=== PATIENT | female | born 1990 | race Caucasian/White ===

== ENCOUNTER 2022-08-23 17:44 | Outpatient (CLI) | payer OTHER, SELFPAY ==
[2022-08-23 18:07] LABS: Hematocrit 38.1 % (37.0-47.0)
== END 2022-08-23 17:45 | disposition home or self-care (01) ==
PROVIDERS: PCP Family Medicine; Visit Provider Anesthesiology
DX: L57.4 Cutis laxa senilis (principal); Z01.818 Encounter for other preprocedural examination
CPT/HCPCS: 36415; 85014; 85018

== ENCOUNTER 2022-08-24 14:19 | Outpatient (CLI) | payer OTHER, SELFPAY ==
--- NOTE | 2022-08-24 14:36 | ECG_ITS ---
Measurements Intervals [place] Rate: 92 P: 74 NE: 142 QRS: 65 QRSD: 92 T: 51 QT: 342 QTc: 423 Interpretive Statements SINUS RHYTHM BORDERLINE ST-T WAVE ABNORMALITY- ANT/INF LEADS BORDERLINE ECG NO PREVIOUS ECG AVAILABLE FOR COMPARISON Electronically Signed On 08-24-2022 15:08:08 CDT by Wicho Barnett D.O.
== END 2022-08-24 14:20 | disposition home or self-care (01) ==
PROVIDERS: PCP Family Medicine; Visit Provider Anesthesiology
DX: L57.4 Cutis laxa senilis (principal); R94.31 Abnormal electrocardiogram [ECG] [EKG]
CPT/HCPCS: 93005

== ENCOUNTER 2022-08-25 02:32 | Day surgery (SDC) | payer OTHER, SELFPAY ==
[2022-08-19 17:14] VITALS: BMI 22.1
--- NOTE | 2022-08-19 17:50 | PC.NURSE ---
Report to the Outpatient Waiting Room, entrance under the green pavilion located off [facility], at 0600 on 08-25-22. Planned Procedure Time: 0730. Time changes happen often and if your time is changed the preop area will call you the afternoon before. - You and your visitor will be asked to self-screen and do not enter if you have any COVID symptoms. - We encourage only one visitor and NO visitors under age 16 are allowed at this time. Your visitor will receive communication by the phone number that is given day of service. - The patient visitor is requested to social distance or may leave the building when not with patient due to restrictions. Patients may have clear liquids (water, carbonated beverages, clear teas, apple juice) until 3 hours prior to surgery with a maximum of 20 ounces. 0430 - No food from midnight until time of surgery - Infants may have breast milk until 4 hours before surgery, formula 6 hours prior to surgery. - Children will be allowed to drink immediately following surgery. If applicable, please bring a bottle or sippy cup to assist with drinking. Juice, water, soda, and popsicles are readily available. For infants on formula, please bring formula the day of surgery. Pacifiers are allowed. Take the following medications with a SIP of water the morning of surgery: Valtrex, control, sertraline, xanax if needed Medications to discontinue per physician: N/A Please no make-up, nail south korean, hairspray, perfume, deodorant, or body powder the day of surgery. No jewelry (including any body piercings) or valuables the day of surgery, leave them at home. Please take a shower or bath the night before, or the morning of, surgery with an antibacterial soap. Wear comfortable, loose fitting clothing. (Zip up jacket, button-down shirt is best) Children are encouraged to wear pajamas. - Jewelry must be removed prior to entering the operating room. Rings and piercings that are not removed may be cut off. - The hospital will not accept responsibility for valuables. - Please leave all valuables, including medications, at home the day of surgery. If you are going home after surgery, a licensed dray truck driver must drive you home. - NO public transportation without another adult. - We recommend that an adult stay with you for 24 hours following discharge. - We also recommend that you do not drive, make important decision, drink alcoholic beverages, or take any drugs that were not prescribed by your health care provider for at least 24 hours after your discharge time. For Pediatric surgeries, we recommend two adults accompany the child home. Follow any additional instructions given to you from your surgeon. If you or anyone in your household have experienced Covid symptoms in the past week, please notify your surgeon or the nurse liaison at the phone number below for possible testing. Telephone instructions given to Tuyet Brownlee and asked if any additional questions and then verbalized understanding. Patient advised to call surgeon office or pre surgery nurse liaison [phone] if any additional questions.
[2022-08-25] VITALS (11 sets, daily range): BP systolic 127–143; BP diastolic 71–88; PULSE 86–105; RESP 14–18; TEMP 36.1–36.6; O2SAT 96–100
--- NOTE | 2022-08-25 06:10 | ECG_ITS ---
Measurements Intervals [place] Rate: 86 P: 72 [place]: 134 QRS: 62 QRSD: 88 T: 56 QT: 351 QTc: 422 Interpretive Statements SINUS RHYTHM NORMAL ECG COMPARED TO ECG 08/24/2022 15:06:21 NO SIGNIFICANT CHANGES Electronically Signed On 08-25-2022 7:54:56 CDT by Wicho Barnett D.O.
--- NOTE | 2022-08-25 06:56 | WPDHPUPDATE1 ---
History and Physical Update Update Date/Time: 08/25/22 06:56 History and Physical has been reviewed, including an updated exam of the patient. There are NO changes in the patient's condition. Risks, benefits, and alternatives have been discussed and questions answered. Patient agrees to proceed with procedure.
[2022-08-25 06:58] LABS: Urine Cotinine NEGATIVE
--- NOTE | 2022-08-25 07:06 | W.PM.PROC2 ---
Procedure Note - Detailed Date of Procedure 08/25/22 Pre-op Diagnosis skin laxity, micromastia Post-op Diagnosis Same Procedure Performed 1. Cervicoplasty 2. Bilateral augmentation Mastopexy 3. Suction lipectomy with fat grafting to bilateral hip dips Surgeon Hu Guillermo MD Anesthesia General Findings Inverted T Superior Pedicle Mastopexy Bilateral Deshawn Tamayo SoftTouch 320 cc Right - REF# [id number] SN [id number] Left - REF# [id number] SN [id number] Lipoaspirate 1500cc Fat grafting bilateral hip dips (300cc / side) 600cc Description of Procedure She is here today for the above. Previously and again today the risks, benefits, alternatives were discussed in extensive detail. I wanted her to be very realistic about the risks involved as well as expectations. We discussed aftercare and what to monitor for. Made sure answered all of her questions to her satisfaction today and consent was obtained. Marked in the preoperative holding area with their verification. The patient was taken to the operating room placed supine on the operating table. Anesthesia was provided by anesthesiology. A surgical time-out was taken. Cervicoplasty She was prepped and draped in a standard sterile fashion. I infiltrated with a tumescent solution the neck and gave adequate time for hemostasis. Fifteen blade used to make an incision submental. Dissection was continued down to the platysma was identified and elevated just above the platysma. I then went between the platysma and deep fat had only obviously excess tissue here making for smooth contour. Submandibular glands were not prominent and addressed. I released the platysma transversely at the level of the hyoid. I then sutured the platysma midline using 2-0 Vicryl. Ten Sujit drain was placed which was brought out laterally. No sutured in place with 4-0 Vicryl. I closed the mental using 3-0 Monocryl followed by running subcuticular 4-0 Monocryl and tissue glue. Breast We cleansed the skin and 1% lidocaine and 0.25% Marcaine with epinephrine was used anesthetize as a field block. She was prepped and draped in a standard sterile fashion. Tegaderm nipple Nixon were placed. A 15 blade used to make an incision just superior to the inframammary fold leaving a cusp of de-epithelized tissue at the t junction. Dissection was continued until the chest wall as identified. I incised the pectoralis major along its inferior border and completely released the inferior border leaving the medial border intact. I created a subpectoral pocket in the appropriate dimensions based on our preoperative planning for the implant. I then copiously irrigated with saline solution and verified a strict hemostasis. Next the use a triple antibiotic and Betadine containing solution to irrigate the pocket. I washed my gloves with the triple antibiotic and Betadine solution. We washed the implant immediately upon opening it with this solution and only opened it when we needed it. I used implant funnel and no-touch technique. The implant was introduced into the pocket using the funnel. Having verified positioning of the implant this was closed using 2-0 Vicryl. I tailor tacked the breast into position. Placed her in a sitting position. Verified the nipple-areolar location based on preoperative planning as well as intraoperative observations and measurements in full agreement. She was placed supine. I de-epithelialized the pedicle. I then removed the inferior central portion of the breast need making sure the implant was well protected. I elevated medial and lateral tissue flaps as well for planned closure. I closed along the IMF with 2-0 Stratafix. Along the vertical with 2-0 PDS. I closed around the Jimy with 3-0 strata fix. 3-0 Monocryl along the vertical. 3-0 Stratafix along the IMF. I finally closed everything with running subcuticular 4-0 Monocryl and tissue glue. Fat grafting Eleven blade was util
[2022-08-25] MEDS: LACTATED RINGERS 1,000 ML 30 ML IV CONT ×2 (07:14→13:12)
--- NOTE | 2022-08-25 07:18 | WPDANESEPPF ---
Anes - Initial Pre Proc Eval Procedure: Operation Date: 08/25/22 07:30 Proposed Procedures p Bilateral Breast Augmentation, - Hu Guillermo MD s Bilateral Breast Mastopexy, - Hu Guillermo MD s Fat Grafting to Bilateral Hips, - Hu Guillermo MD s Submental Scar Neck Lift with Liposuction - Hu Guillermo MD Date/Time: 08/25/22 07:18 Surgeon: Hu Guillermo MD Pre Op Diagnosis: skin laxity, micromastia Patient Data Age: 31 Gender: F Height: 1.78 m Weight: 69.85 kg Allergies Allergy/AdvReac Type Severity Reaction Status Date / Time No Known Allergies Allergy Verified 08/19/22 17:11 Home Medications Medication Instructions Recorded Confirmed Type alprazolam 0.25 mg tablet (Xanax) 0.25 mg PO PRN 08/24/20 08/19/22 History norgestimate 0.18 mg/0.215 mg/0.25 1 tablet PO DAILY 08/24/20 08/19/22 History mg-ethinyl estradiol 25 mcg tablet (Gai-Pw-Xamemkvl) sertraline 50 mg tablet (Zoloft) 50 mg PO DAILY 08/24/20 08/19/22 History valacyclovir 500 mg tablet 500 mg PO DAILY 08/24/20 08/19/22 History (Valtrex) Laboratory Tests 08/25/22 06:24 Cotinine Negative Patient hx anesthesia problems: post op nausea/vomiting Family hx anesthesia problems: none Results Review: All pre-operative results and documents have been reviewed as part of the pre-operative evaluation. [facility] Past Medical History Medical History Anxiety Hx of migraines Surgical History Surgical History History of cosmetic plastic surgery [facility] December 2017 Social History Social History Smoking status: Never smoker Second hand tobacco smoke exposure: No Alcohol intake: current Alcohol use details: rarely Substance use: current Substance use type: marijuana Other substance usage details: rarely Living arrangements: alone Spiritual care concerns: No Anes - Eval Final PreProcedure Day of Procedure 11/03/22 07:18 Patient weight: normal Heart: regular rate and rhythm Lungs: clear to auscultation Airway: Mallampati scale class II Neurological: alert and oriented Last oral intake: >/= 8 hours ASA classification: II Emergent: no Anesthetic plan: proceed Anesthesia type and monitoring: general and standard monitoring Results Review: All pre-operative results and documents have been reviewed as part of the pre-operative evaluation. Informed Consent: The patient's anesthetic plan and its attendant risks and benefits were discussed with the patient/family/POA. Questions were solicited and answers provided to the satisfaction of the patient/family/POA.
[2022-08-25] MEDS: SCOPOLAMINE 1.5 MG PATCH TRANSDERM (07:40)
[2022-08-25] MEDS: ceFAZolin 2 GM/D5W 50 ML 2 GM/50 ML BAG IVPB (07:40)
[2022-08-25] MEDS: TRANEXAMIC ACID 1,000MG/ISO100 1,000 MG/100 ML BAG 200 MG IVPB (07:49)
[2022-08-25] MEDS: NACL 0.9% IRRIG POUR BOTTLE 900 ML, GENTAMICIN SULFATE INJ 160 MG, ceFAZolin 2 GM, POVI... IRRIGATION (08:52)
[2022-08-25] MEDS: BUPIVACAINE/EPINEPHRINE 0.25% 50 ML VIAL INFILTRATE (08:53)
[2022-08-25] MEDS: LIDOCAINE HCL 1% PF 30 ML VIAL INFILTRATE (08:54)
[2022-08-25] MEDS: ceFAZolin SODIUM 1 GM VIAL IV PUSH (12:05)
[2022-08-25] MEDS: LACTATED RINGERS IRRIG 1,000 ML, LIDOCAINE HCL 1% LOCAL INJ 50 ML, EPINEPHrine HCL INJ ... INFILTRATE (12:07)
[2022-08-25] MEDS: HYDROmorphone HCL INJ (*CRX) 1 MG/ML SYR 0.5 MG IV PUSH (13:53)
[2022-08-25] MEDS: ONDANSETRON INJ 4 MG/2 ML VIAL IV PUSH (14:51)
--- NOTE | 2022-08-25 15:46 | SUR.PHASEII ---
PATIENT AWAKE, ALERT, NAD. RELUCTANT TO GO HOME YET UNTIL FEELS MORE CLEAR-HEADED. WILL CONTINUE TO MONITOR.
[2022-08-25] MEDS: oxyCODONE HCL (*CRX) 5 MG TAB IR PO (16:13)
--- NOTE | 2022-08-25 16:18 | SUR.PHASEII ---
PATIENT INSTRUCTED AND GIVEN DEMONSTRATION RE: JESSEE DRAIN. GIVEN I & O FORM AND MEASURING CUPS.
[2022-08-25] MEDS: diphenhydrAMINE HCl INJ 50 MG/ML VIAL 12.5 MG IV PUSH (16:25)
--- NOTE | 2022-08-25 17:28 | SUR.PHASEII ---
PATIENT HAS BEEN DRESSED SINCE 1600. RIDE ARRIVED BUT PATIENT HAS HAD INTERMITTENT NAUSEA/VOMITING SO RIDE LEFT TO BASKET [facility]ER HER CHILD AND WILL RETURN. HAS MINIMAL NAUSEA NOW; ABLE TO WALK WITHOUT ASSISTANCE IN THE KIM. AWAITING RIDE.
== END 2022-08-25 17:51 | disposition home or self-care (01) ==
PROVIDERS: PCP Family Medicine; Visit Provider Surgery Plastic and Reconstructive Surgery
PROC: (CPT 15819; principal; 2022-08-25 07:30)
PROC: (CPT 19316; 2022-08-25 07:30)
PROC: (CPT 15769; 2022-08-25 07:30)
PROC: (CPT 15819; 2022-08-25 07:30)
DX: Z41.1 Encounter for cosmetic surgery (principal); L57.4 Cutis laxa senilis; N64.82 Hypoplasia of breast
CPT/HCPCS: 15819; 19316; 19325; 15771; 15772 ×11; 80307; 93005; A9270; J0171; J0330; J0690; J1100; J1170; J1200; J1580; J2250; J2370; J2405; J2704; J3010; J7030; J7120

== ENCOUNTER 2023-03-09 16:20 | Outpatient (CLI) | payer OTHER, SELFPAY ==
[2023-03-09 16:40] LABS: Hematocrit 38.4 % (37.0-47.0); Hemoglobin 13.2 g/dL (12.0-15.0); Mean Corpuscular HGB Conc 34.4 g/dl (32-36); Mean Corpuscular Hemoglobin 33.8 pg (26-34); Mean Corpuscular Volume 98.5 fl (80-100); Mean Platelet Volume 9.5 fl (7.4-10.4); Platelet Count Result 240 k/mm3 (150-375); Red Cell Distribution Width 11.9 % (11.5-14.5); White Blood Count 7.1 K/mm3 (4.5-10.0)
[2023-03-09 17:49] LABS: Alanine Aminotransferase 15 U/L (6-35); Albumin Level 4.1 g/dL (3.5-5.1); Alkaline Phosphatase 59 U/L (38-126); Anion Gap 6 mmol/L (8-16); Aspartate Amino Transferase 23 U/L (14-36); Bilirubin,Total 0.3 mg/dL (0.2-1.3); Blood Urea Nitrogen 12 mg/dL (7-17); Calcium 8.5 mg/dL (8.4-10.2); Carbon Dioxide 30 mmol/L (22-30); Chloride 105 mmol/L (98-107); Estimated Glomerular Filt Rate > 60; Glucose 91 mg/dL (65-110); Potassium 3.8 mmol/L (3.4-5.0); Sodium 141 mmol/L (137-145)
[2023-03-14 11:38] LABS: Testosterone Total 25 ng/dL (2-45)
[2023-03-14 15:03] LABS: DHEA-Sulfate 211 mcg/dL (23-266)
== END 2023-03-09 16:21 | disposition home or self-care (01) ==
LOC: ANHLAB 16:22
PROVIDERS: PCP Family Medicine; Visit Provider Obstetrics & Gynecology
DX: R68.82 Decreased libido (principal)
CPT/HCPCS: 36415; 80053; 82627; 84403; 85027

== ENCOUNTER 2024-08-14 11:37 | Emergency (ER) | payer SELFPAY ==
[2024-08-14] VITALS (35 sets, daily range): BP systolic 110–130; BP diastolic 67–96; PULSE 61–88; RESP 9–28; TEMP 36.5–37; O2SAT 14–100
--- NOTE | ~2024-08-14 | XR_ITS ---
EXAMINATION: XR chest 2V DATE: 08/14/2024 12:30 INDICATION: Weakness. Nausea. TECHNIQUE: Frontal and lateral views of the chest were obtained. COMPARISON: None. FINDINGS: There is mild scarring at right lung apex. No pleural effusion or pneumothorax. The heart s ize is normal. IMPRESSION: 1. Mild scarring at right lung apex. Reviewed, dictated and finalized at location A.
--- NOTE | ~2024-08-14 | CT_ITS ---
EXAMINATION: CTA brain carotid DATE: 08/14/2024 13:47 INDICATION: Right hemiparesis. TECHNIQUE: Computed tomographic angiography (CTA) of the head was performed without and with 100 mL O mnipaque-350 intravenous contrast. CTA of the neck was performed with intravenous contrast. Automated exposure control and iterative reconstruction technique were employed. The dose-length product was 1 606.37 mGy-cm. Maximum intensity projection and volume rendered 3D-reconstructions were created by alberto novak technologist on a separate workstation. COMPARISON: None. FINDINGS: HEAD CTA: There is no intracranial hemorrhage, acute infarction, or abnormal intracranial mass lesion . The ventricles are normal in size. The orbits are normal. The paranasal sinuses are clear. The mast oid air cells are normal. Left vertebral artery is dominant. There is no significant stenosis of basi lar artery or the posterior cerebral arteries. There is no significant stenosis of the intracranial i nternal carotid arteries or anterior or middle cerebral arteries. Anterior communicating artery is no rmal. The posterior communicating arteries are normal. There is no aneurysm. NECK CTA: There is mild scarring at the lung apices. There are no pathologically enlarged lymph nodes . There are dissections of the vertebral arteries bilaterally. There is no visible plaque in the prox imal internal carotid arteries. There is 0% stenosis of the proximal right internal carotid artery re lative to normal distal artery lumen diameter (NASCET criteria). There is 0% stenosis of the proximal left internal carotid artery relative to normal distal artery lumen diameter. There is mild cervical spondylosis. IMPRESSION: 1. Dissections of both vertebral arteries. 2. Normal brain. No aneurysm or significant intracranial arterial stenosis. 3. 0% stenosis of the proximal internal carotid arteries relative to normal distal artery lumen diame ters (NASCET criteria). Reviewed, dictated and finalized at location A. IMPRESSION: 1. Dissections of both vertebral arteries. 2. Normal brain. No aneurysm or significant intracranial arterial stenosis. 3. 0% stenosis of the proximal internal carotid arteries relative to normal dis cheryl artery lumen diameters (NASCET criteria).
[2024-08-14 11:52] LABS: Glucose Point of Care 82 mg/dl (65-105)
--- NOTE | 2024-08-14 11:59 | ECG_ITS ---
Test Date: 2024-08-14 12:06:28 Measurements Intervals [place] Rate: 62 P: 52 GA: 156 QRS: 42 QRSD: 84 T: 43 QT: 378 QTc: 385 Interpretive Statements SINUS RHYTHM NORMAL ECG No previous ECG available for comparison Electronically Signed On 08-14-2024 13:48:52 CDT by Gene Presley M.D.
[2024-08-14 12:21] LABS: Basophils Absolute Auto 0.1 K/mm3 (0.0-0.1); Basophils Percent Auto 0.5 % (0.2-1.2); Eosinophils Absolute Auto 0.2 K/mm3 (0-0.3); Eosinophils Percent Auto 1.6 % (0-4.4); Hematocrit 40.9 % (37.0-47.0); Hemoglobin 14.3 g/dL (12.0-15.0); Immature Granulocyte Absolute 0.05 K/mm3 (0.00-0.031); Immature Granulocyte Percent A 0.5 % (0-0.5); Lymphocytes Absolute Auto 4.38 K/mm3 (0.9-3.2); Lymphocytes Percent Auto 45.1 % (18.3-44.2); Mean Corpuscular Hemoglobin 33.6 pg (26-34); Mean Platelet Volume 9.4 fl (7.4-10.4); Monocytes Absolute Auto 0.6 K/mm3 (0.1-0.6); Monocytes Percent Auto 6.3 % (2.6-8.5); Neutrophils Absolute Auto 4.5 K/mm3 (1.3-6.7); Platelet Count Result 277 k/mm3 (150-375); Red Blood Count 4.26 M/mm3 (4.2-5.4); Red Cell Distribution Width 11.8 % (11.5-14.5); White Blood Count 9.7 K/mm3 (4.5-10.0)
[2024-08-14 12:31] LABS: Alanine Aminotransferase 13 U/L (6-35); Albumin Level 4.2 g/dL (3.5-5.1); Alkaline Phosphatase 72 U/L (38-126); Anion Gap 8 mmol/L (4-12); Aspartate Amino Transferase 18 U/L (14-36); Bilirubin,Total 0.7 mg/dL (0.2-1.3); Blood Urea Nitrogen 13 mg/dL (7-17); Calcium 8.8 mg/dL (8.4-10.2); Carbon Dioxide 25 mmol/L (22-30); Chloride 104 mmol/L (98-107); Estimated CRCL calculation 94 ml/min; Estimated Glomerular Filt Rate > 60; Glucose 103 mg/dL (65-110); Potassium 3.9 mmol/L (3.4-5.0); Sodium 137 mmol/L (137-145)
--- NOTE | 2024-08-14 12:41 | ED.WEAKNESS ---
HPI - Weakness General Chief complaint: Weakness Stated complaint: n/v Time Seen by Provider: 08/14/24 12:23 History of Present Illness HPI Narrative: Pt presents with and episode of numbness and weakness and inability to use right side for about 30 minutes which resolved. Pt had a sharp left sided RABAGO behind her left eye and tearing in her left eye prior to the right sided symptoms. Pt had neck pain last week and got treated with prednisone, naprosyn, and flexeril without much relief. Pt also saw chiropractor and had adjustment to her neck. Now pt says she just feel generally weak. Related Data Home Medications Medication Instructions Recorded Confirmed alprazolam 0.25 mg tablet (Xanax) 0.25 mg PO PRN 08/24/20 09/19/23 norgestimate 0.18 mg/0.215 mg/0.25 1 tablet PO DAILY 08/24/20 09/19/23 mg-ethinyl estradiol 25 mcg tablet (Nzo-Yy-Mwisbckk) sertraline 50 mg tablet (Zoloft) 50 mg PO DAILY 08/24/20 09/19/23 valacyclovir 500 mg tablet 500 mg PO DAILY 08/24/20 09/19/23 (Valtrex) Allergies Allergy/AdvReac Type Severity Reaction Status Date / Time No Known Allergies Allergy Verified 08/14/24 11:47 Review of Systems Review of Systems: All systems reviewed & are unremarkable except as noted in HPI and below PMFSH Past Medical History Medical History (Updated 08/14/24 @ 15:06 by Jose Maria Nation III, DO) Anxiety Bursitis of both feet Hx of migraines Surgical History Surgical History History of cosmetic plastic surgery [facility] December 2017 Family History Family History Mother Neuropathy Social History Social History Smoking status: Never smoker Second hand tobacco smoke exposure: No Alcohol intake: current Alcohol use details: rarely Substance use: current Substance use type: marijuana Other substance usage details: rarely Living arrangements: alone Occupation/Education: occupation 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 Resp: Effort & Inspection: normal respiratory effort Auscultation: clear to auscultation bilaterally Cardio: Rate: regular rate Rhythm: regular rhythm GI: GI Palp: Yes Soft to palpation and No Tenderness to palpation present (GI) Auscultation: normal bowel sounds Back/Spine/Pelvis: Back: no CVA tenderness Skin: General skin exam: normal color Rashes: no rashes Wounds: no wounds Neuro: General: patient oriented x3, moves all extremities, no meningeal signs and CN's II-XI intact bilaterally Cranial nerves: Yes Nystagmus not present Speech: normal speech Extrem: General: normal to inspection and no clubbing, cyanosis or edema Psych: Mental Status: mental status grossly normal Affect: normal affect Attitude: cooperative Course Vital Signs Vital signs: Vital Signs Temperature 98.6 F 08/14/24 11:41 Pulse Rate 63 08/14/24 11:41 Respiratory Rate 22 H 08/14/24 11:41 Blood Pressure 123/96 H 08/14/24 11:41 Pulse Oximetry 99 08/14/24 11:41 Oxygen Delivery Room Air 08/14/24 11:41 Temperature 97.7 F 08/14/24 19:15 Pulse Rate 70 08/14/24 19:15 Respiratory Rate 21 H 08/14/24 19:15 Blood Pressure 110/67 08/14/24 17:31 Pulse Oximetry 98 08/14/24 19:15 Oxygen Delivery Room Air 08/14/24 17:53 MDM - Weakness MDM Narrative Medical decision making narrative: concern for vertebral artery dissection for sure also could be TIA. will get labs and CTA head and neck. Dixussed with Dr Larson, neurosurgery at [facility]. said will accept to ICU at [facility]. said to give asa 325 mg. Will call back with bed status. bed available. Pt trasnported to [facility] ICU. Lab Data 08/14/24 12:08 08/14/24 12:08 Labs: Lab Results 08/14/24 08/14/24 08/14/24 Range/Units 11:50 12:08 13:16 WBC 9.7 (4.5-10.0) K/mm3 RBC 4.26 (4.2-5.4) M/mm3 Hgb 14.3 (12.0-15.0) g/dL Hct 40.9 (37.0-47.0) % MCV 96.0 (80-100) fl MCH 33.6 (26-34) pg MCHC 35.0 (32-36) g/dl RDW 11.8 (11.5-14.5) % Plt Count 277 (150-375) k/mm3 MPV 9.4 (7.4-10.4) fl Immature Gran % (Auto) 0.5 (0-0.5) % Neut % (Auto) 46.0 (45.5-73.1) % Lymph % (Auto) 45.1 H (18.3-44.2) % [place] % (Auto) 6.3 (2.6-8.5) % Eos % (Auto) 1.6 (0-4.4) % Baso % (Auto) 0.5 (0.2-1.2) % Lymph # (Auto) 4.38 H (0.9-3.2) K/mm3 Childress # (Auto) 0.6 (0.1-0.6) K/mm3 Eos # (Auto) 0.2 (0-0.3) K/mm3 Baso # (Auto) 0.1 (0.0-0.1) K/mm3 Abs Immat Gran (auto) 0.05 H (0.00-0.031) K/mm3 Absolute Neuts (auto) 4.5 (1.3-6.7) K/mm3 Absolute Nucleated RBC 0.000 (0.0-0.012) K/mm3 Nucleated RBC % 0.0 (0.0-0.2) % Sodium 137 (137-145) mmol/L Potassium 3.9 (3.4-5.0) mmol/L Chloride 104 (98-107) mmol/L Carbon Dioxide 25 (22-30) mmol/L Anion Gap 8 (4-12) mmol/L BUN 13 (7-17) mg/dL Creatinine 0.80 (0.7-1.0) mg/dL Estim Creat Clear Calc 94 ml/min Estimated GFR > 60 (59 - ) Glucose 103 (65-110) mg/dL POC Capillary Glucose 82 (65-105) mg/dl Calcium 8.8 (8.4-10.2) mg/dL Total Bilirubin 0.7 (0.2-1.3) mg/dL AST 18 (14-36) U/L ALT 13 (6-35) U/L Alkaline Phosphatase 72 (38-126) U/L Total Protein 7.0 (6.3-8.2) g/dL Albumin 4.2 (3.5-5.1) g/dL Urine Color Yellow (Yellow) Urine Appearance Clear (Clear) Urine pH 7.5 (5.0-9.0) Ur Specific [place] 1.015 (1.001-1.035) Urine Protein Negative (Negative) mg/dL Urine Glucose (UA) Negative (Negative) mg/dL Urine Ketones Negative (Negative) mg/dL Ur Blood (Man) Negative (Negative) Urine Nitrate Negative (Negative) Urine Bilirubin Negative (Negative) Urine Urobilinogen 0.2 (<2.0) mg/dL Leukocyte Esterase Rfl Negative (Negative) EN/UL POC Urine HCG, Qual (Negative) 08/14/24 Range/Units 13:18 WBC (4.5-10.0) K/mm3 RBC (4.2-5.4) M/mm3 Hgb (12.0-15.0) g/dL Hct (37.0-47.0) % MCV (80-100) fl MCH (26-34) pg MCHC (32-36) g/dl RDW (11.5-14.5) % Plt Count (150-375) k/mm3 MPV (7.4-10.4) fl Immature Gran % (Auto) (0-0.5) % Neut % (Auto) (45.5-73.1) % Lymph % (Auto) (18.3-44.2) % Childress % (Auto) (2.6-8.5) % Eos % (Auto) (0-4.4) % Baso % (Auto) (0.2-1.2) % Lymph # (Auto) (0.9-3.2) K/mm3 [place] # (Auto) (0.1-0.6) K/mm3 Eos # (Auto) (0-0.3) K/mm3 Baso # (Auto) (0.0-0.1) K/mm3 Abs Immat Gran (auto) (0.00-0.031) K/mm3 Absolute Neuts (auto) (1.3-6.7) K/mm3 Absolute Nucleated RBC (0.0-0.012) K/mm3 Nucleated RBC % (0.0-0.2) % Sodium (137-145) mmol/L Potassium (3.4-5.0) mmol/L Chloride (98-107) mmol/L Carbon Dioxide (22-30) mmol/L Anion Gap (4-12) mmol/L BUN (7-17) mg/dL Creatinine (0.7-1.0) mg/dL Estim Creat Clear Calc ml/min Estimated GFR (59 - ) Glucose (65-110) mg/dL POC Capillary Glucose (65-105) mg/dl Calcium (8.4-10.2) mg/dL Total Bilirubin (0.2-1.3) mg/dL AST (14-36) U/L ALT (6-35) U/L Alkaline Phosphatase (38-126) U/L Total Protein (6.3-8.2) g/dL Albumin (3.5-5.1) g/dL Urine Color (Yellow) Urine Appearance (Clear) Urine pH (5.0-9.0) Ur Specific [place] (1.001-1.035) Urine Protein (Negative) mg/dL Urine Glucose (UA) (Negative) mg/dL Urine Ketones (Negative) mg/dL Ur Blood (Man) (Negative) Urine Nitrate (Negative) Urine Bilirubin (Negative) Urine Urobilinogen (<2.0) mg/dL Leukocyte Esterase Rfl (Negative) EN/UL POC Urine HCG, Qual Negative (Negative) Critical Care Time Critical Care Time Critical Care Time: Yes Total Critical Care Time: 42 Discharge Plan Discharge Clinical Impression: Vertebral artery dissection Patient Disposition: Acute Care Hospital Condition: Serious Prescriptions: No Action sertraline [Zoloft] 50 mg tablet 50 mg PO DAILY alprazolam [Xanax] 0.25 mg tablet 0.25 mg PO PRN valacyclovir [Valtrex] 500 mg tablet 500 mg PO DAILY norgestimate-ethinyl estradiol [Mwi-Bb-Fntzepyz] 0.18/0.215/0.25 mg-25 mcg tablet 1 tablet PO DAILY Follow-up/Referrals: Kuldeep,Linda Amor MD [Non-Staff] -
[2024-08-14 13:20] LABS: BEDSIDEPREGUCG Negative (Negative)
[2024-08-14 13:39] LABS: Add Urine Microscopic? NO; Appearance Urine Clear (Clear); Bilirubin Urine Negative (Negative); Blood Urine Negative (Negative); Color Urine Yellow (Yellow); Glucose Urine UA Negative (Negative); Ketones Urine Negative (Negative); Leukocyte Esterase Ur Negative LEU/UL (Negative); Nitrate Urine Negative (Negative); Protein Urine Negative (Negative); Specific Grav Ur 1.015 (1.001-1.035); Urobilinogen Urine 0.2 mg/dL (<2.0); pH Urine 7.5 (5.0-9.0)
[2024-08-14] MEDS: ASPIRIN 325 MG TABLET PO (15:14)
== END 2024-08-14 17:57 | disposition short-term general hospital (02) ==
PROVIDERS: Emergency Medicine; Emergency Provider Emergency Medicine
DX: I77.74 Dissection of vertebral artery (principal); F41.9 Anxiety disorder, unspecified; Z79.899 Other long term (current) drug therapy
CPT/HCPCS: 36415; 70496; 70498; 71046; 80053; 81003; 81025; 82948; 85025; 93005; 99285; A9270; Q9967

== ENCOUNTER 2024-10-30 14:10 | Outpatient (CLI) | payer BC, MEDICAID, SELFPAY ==
--- NOTE | ~2024-10-30 | XR_ITS ---
[id number] Ordering provider: Haylee Smith, APURVA History: . NECK PAIN PAST SEIZURE BILAT ARM PAIN NUMB TINGLING WEAK . Comparison: None. FINDINGS: VERTEBRAL BODIES: Normal height and alignment. No visible fracture or subluxation. The dens is intact . DISK SPACES: Well maintained. PARASPINOUS SOFT TISSUES: No prevertebral soft tissue swelling. IMPRESSION: No acute osseous abnormality cervical spine. Reviewed, dictated and finalized at location A. T POTATO DISINTEGRATOR
== END 2024-10-30 14:11 | disposition home or self-care (01) ==
LOC: ANHIMG 14:18
PROVIDERS: PCP Physician Assistant; Visit Provider Physician Assistant
DX: M54.2 Cervicalgia (principal)
CPT/HCPCS: 72040

== ENCOUNTER 2024-11-26 08:03 | Outpatient (CLI) | payer MEDICAID, SELFPAY ==
--- NOTE | ~2024-11-26 | CT_ITS ---
EXAMINATION: CTA brain carotid DATE: 11/26/2024 08:44 INDICATION: Vertebral artery dissection. TECHNIQUE: Computed tomographic angiography (CTA) of the head was performed without and with 100 mL O mnipaque-[id number] intravenous contrast. CTA of the neck was performed with intravenous contrast. Automated exposure control and iterative reconstruction technique were employed. The dose-length product was 1 580.48 mGy-cm. Maximum intensity projection and volume rendered 3D-reconstructions were created by alberto novak technologist on a separate workstation. COMPARISON: CTA 08/14/2024 FINDINGS: HEAD CTA: There is no intracranial hemorrhage, acute infarction, or abnormal intracranial mass lesion . The ventricles are normal in size. The orbits are normal. The paranasal sinuses are clear. The mast oid air cells are normal. Left vertebral artery is dominant. There is no significant stenosis of basi lar artery or the posterior cerebral arteries. There is no significant stenosis of the intracranial i nternal carotid arteries or anterior or middle cerebral arteries. Anterior communicating artery is no rmal. The posterior communicating arteries are normal. There is no aneurysm. NECK CTA: There are no pathologically enlarged lymph nodes. There is no significant stenosis of the v ertebral arteries. There is no visible plaque in the proximal internal carotid arteries. There is 0% stenosis of the proximal right internal carotid artery relative to normal distal artery lumen diamete r (NASCET criteria). There is 0% stenosis of the proximal left internal carotid artery relative to no rmal distal artery lumen diameter. IMPRESSION: 1. Normal brain. 2. Normal vertebral arteries. Dissections no longer identified. 3. 0% stenosis of the proximal internal carotid arteries relative to normal distal artery lumen diame ters (NASCET criteria). Reviewed, dictated and finalized at location A. STOCK CLERK IMPRESSION: 1. Normal brain. 2. Normal vertebral arteries. Dissections no longer identified. 3. 0% stenosis of the proximal internal carotid arteries relative to normal dis cheryl artery lumen diameters (NASCET criteria).
--- OUTSIDE RECORDS SUMMARY | 2024-11-26 08:14 | XMS_ITS | Clinical Summary ---
Author Organization [facility] Address [address] [place] [address] Care Team Providers Care Crm Specialist Name Role Phone Linda Light MD Primary Care Provider [phone] Allergies No known active allergies Medications aspirin 81 mg chewable tablet Take 1 tablet (81 mg total) by mouth daily After completing Eliquis treatment 4 09/17/20 25 Active Additional Information Patient not taking.Reported on 11/07/2024 apixaban (ELIQUIS) 5 mg tabletIndication s:atrial fibrillation Take 1 tablet (5 mg total) by mouth every 12 (twelve) hours 60 tablet 2 4 12/12/19 25 Active cyclobenzaprine (FLEXERIL) 5 mg tablet Take 1 tablet (5 mg total) by mouth 3 (three) times a day as needed for muscle spasms 30 tablet 2 5 02/12/20 25 Active Active Problems Problem Noted Date Diagnosed Date 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 Encounters Date Type Department Care Team Description 11/13/2024 Telephone [facility] Neurology [address] [place] [phone] Althea Rodriguez NP 11/07/2024 2:00 PM INSPECTOR FINAL ASSEMBLY CONVEYOR LINE Office Visit [facility] Neurology [address] [place] [phone] Althea Rodriguez NP 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); Vertebral artery dissection (HCC) 09/09/2024 Orders Only [facility] Neurosurgery [address] [facility] [address] [place] [address] [place] [id number] Brien García MD Vertebral artery dissection (HCC) (Primary Dx) 09/02/2024 Orders Only [facility] Neurosurgery [address] [facility] Medicine 6th [place] [address] [place] [address] Chanel Peacock RN Vertebral artery dissection (HCC) (Primary Dx) from Last 3 Months Social History Tobacco Use Types Packs/Day Years Used Date Smoking Tobacco: Never Smokeless Tobacco: Never Personal Safety Answer Date Recorded Have you ever been in or are you currently in a harmful physical or emotional relationship or is someone making you feel afraid or unsafe? Denies 08/14/2024 Comments Unknown Sex and Gender Information Value Date Recorded Sex Assigned at Not on file Legal Sex Female 12:12 AM INSPECTOR [employer]AL [employer] Gender Identity Not on file Sexual Orientation Not on file Obstetrics History Last Filed Vital Signs Vital Sign Reading Time Taken Comments Blood Pressure 95/60 11/07/2024 1:51 PM INSPECTOR FINAL [employer]SEM[employer] Pulse 90 11/07/2024 1:51 PM INSPECTOR FINAL [employer]SEMBL[employer] Temperature 36.6 ??C (97.9 ??F) 08/16/2024 2:53 PM CD T Respiratory Rate 21 11/07/2024 1:51 PM INSPECTOR FINAL [employer]SEMBL[employer] Oxygen Saturation 95% 11/07/2024 1:51 PM INSPECTOR FINAL [employer]SEM[employer] Inhaled Oxygen Concentration - - Weight 70.3 kg (155 lb) 11/07/2024 1:51 PM INSPECTOR FINAL [employer]SEMBLY [employer] Height 177.8 cm (5' 10 ) 11/07/2024 1:51 PM INSPECTOR FINAL [employer]SEMBL[employer] Body Mass Index 22.24 11/07/2024 1:51 PM INSPECTOR FINAL [employer]SEM[employer] Plan of Treatment Health Maintenance Due Date Last Done Comments Cervical Cancer Screening 1990 Depression Screening 1990 Hepatitis C Screening 1990 Varicella Vaccines (1 of 2 - 13+ 2-dose series) 2003 DTaP/Tdap/Td Vaccine (5 - Tdap) 05/27/2005 05/26/2005, 07/28/1992, 06/25/1991, Additional history exists Hepatitis B Screening 2008 Regular Well Visit/Exam 18-64 2008 Covid-19 Vaccine ( season) 2024 07/01/2021, 06/10/2021 Influenza Vaccine (#1) 2024 HPV Vaccines Aged Out No longer eligi ble based on patient's age to complete this topic Pneumococcal vaccine <65 Aged Out No longer eligible based on patient's age to complete this topic Insurance [facility] Advance Directives For more information, please contact: [phone] * Full Code (Latest Code Status on File) Date Activated Date Inactivated Comments 08/14/2024 8:39 PM 08/16/2024 8:50 PM Care Teams Crm Specialist Relationship Specialty Start Date End Date Linda Light MD [address] [address] PCP - General Family Medicine 03/02/21
--- OUTSIDE RECORDS SUMMARY | 2024-11-26 08:15 | XMS_ITS | Referral Summary ---
Author Organization [facility] Address [address] [place] [address] Care Team Providers Care Family Educator Name Role Phone Linda Light MD Primary Care Provider [phone] Encounters Date Type Department Care Team Description 11/13/2024 Telephone [facility] Neurology [address] [place] [phone] Althea Rodriguez NP 11/07/2024 2:00 PM IMMIGRATION MANAGER Office Visit [facility] Neurology [address] [place] [phone] Althea Rodriguez NP 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); Vertebral artery dissection (HCC) 09/09/2024 Orders Only [facility] Neurosurgery [address] [facility] [address] 6th [place] [address] [place] [phone] Brien García MD Vertebral artery dissection (HCC) (Primary Dx) 09/02/2024 Orders Only [facility] Neurosurgery [address] [facility] 6th [place] [address] [place] [phone] Chanel Peacock RN Vertebral artery dissection (HCC) (Primary Dx) from Last 3 Months Allergies No known active allergies Medications aspirin [...] Date Diagnosed Date 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 Social History Tobacco Use Types Packs/Day Years [...] on file Legal Sex Female 12:12 AM IMMIGRATION MANAGER Gender Identity Not on file Sexual Orientation Not on file Last Filed Vital Signs Vital Sign Reading Time Taken Comments Blood Pressure 95/60 11/07/2024 1:51 PM IMMIGRATION MANAGER Pulse 90 11/07/2024 1:51 PM IMMIGRATION MANAGER Temperature 36.6 ??C (97.9 ??F) 08/16/2024 2:53 PM CD T Respiratory Rate 21 11/07/2024 1:51 PM IMMIGRATION MANAGER Oxygen Saturation 95% 11/07/2024 1:51 PM IMMIGRATION MANAGER Inhaled Oxygen Concentration - - Weight 70.3 kg (155 lb) 11/07/2024 1:51 PM IMMIGRATION MANAGER Height 177.8 cm (5' 10 ) 11/07/2024 1:51 PM IMMIGRATION MANAGER Body Mass Index 22.24 11/07/2024 1:51 PM IMMIGRATION MANAGER Plan of Treatment Not on file Insurance [facility] Advance Directives For more information, please contact: [phone] * Full Code (Latest Code Status on File) Date Activated Date Inactivated Comments 08/14/2024 8:39 PM 08/16/2024 8:50 PM Care Teams Family Educator Relationship Specialty Start Date End Date Linda Light MD [address] [place] [address] PCP - General Family Medicine 03/02/21
== END 2024-11-26 08:04 | disposition home or self-care (01) ==
LOC: ANHIMG 08:05
PROVIDERS: PCP Physician Assistant; Visit Provider Nurse Practitioner
DX: I77.74 Dissection of vertebral artery (principal)
CPT/HCPCS: 70496; 70498; Q9967

== ENCOUNTER 2024-12-29 12:59 | Outpatient (CLI) | payer MEDICAID, SELFPAY ==
--- NOTE | ~2024-12-29 | MR_ITS ---
EXAMINATION: MR cervical spine wo con DATE: 12/29/2024 14:43 INDICATION: Neck pain. TECHNIQUE: Magnetic resonance imaging (MRI) of the cervical spine was performed without intravenous c ontrast. Sequences included sagittal T2-weighted FSE, sagittal T2-weighted FS FSE, sagittal T1-weight ed FSE, axial MERGE, and axial T2-weighted FSE. COMPARISON: The brain carotid 11/26/2024; x-ray C-spine 10/30/2024 FINDINGS: Craniocervical association and atlantoaxial joint are intact. Cervical straightening as can occur with positioning or muscle spasm, otherwise normal alignment. Vertebral body heights are maint ained. Loss of disc hydration at C2-3 through C4-5. The cord signal is normal. Normal cervicomedulary junction. The following disc levels are specifically discussed: C2-C3: The disc does not extend beyond the endplate margin. There is no uncovertebral joint osteoarth ritis. There is no facet joint osteoarthritis. There is no neural foraminal stenosis. There is no talisha tral canal stenosis. C3-C4: Minimal diffuse bulge. There is no uncovertebral joint osteoarthritis. There is no facet joint osteoarthritis. There is no neural foraminal stenosis. There is no central canal stenosis. C4-C5: Minimal diffuse bulge. There is no uncovertebral joint osteoarthritis. There is no facet joint osteoarthritis. There is no neural foraminal stenosis. There is no central canal stenosis. C5-C6: Minimal diffuse bulge. There is no uncovertebral joint osteoarthritis. There is no facet joint osteoarthritis. There is no neural foraminal stenosis. There is no central canal stenosis. C6-C7: Minimal diffuse bulge There is no uncovertebral joint osteoarthritis. There is no facet joint osteoarthritis. There is no neural foraminal stenosis. There is no central canal stenosis. C7-T1: The disc does not extend beyond the endplate margin. There is no uncovertebral joint osteoarth ritis. There is no facet joint osteoarthritis. There is no neural foraminal stenosis. There is no talisha tral canal stenosis. IMPRESSION: Mild multilevel cervical degenerative disc disease. Reviewed, dictated and finalized at location K.
--- OUTSIDE RECORDS SUMMARY | 2024-12-29 13:04 | XMS_ITS | Data Portability ---
Author Organization [facility] Address [address] [place] [address] Care Team Providers Care [employer] Name Role Phone LINDA PATRICK Primary Care Provider [phone] Assessment No assessment recorded. Plan of Treatment Reminders Order Date Submit Date Provider Last Modified By Organization Details Last Modified Time Details Appointments None record ed. Lab CBC w/ auto diff 2020 021 KATRIN BROTHERS, [address] [place], [place] [address]woodrow Dc, [facility] [address], [place], [address], 09:13:04 vitami n B12 + folate , serum or blood 2020 021 KATRIN BROTHERS, [address] [place] [address], [facility] [address], [place], [address], 09:13:05 TSH + free T4, serum 2020 021 KATRIN BROTHERS, [address] [place] [address], [facility] [address], [place], [address], 09:13:03 CMP, serum or plasma 2020 021 KATRIN BROTHERS, [facility], [facility] [address], [place], [address], 09:13:04 cultur e, urine 2018 0[address] [facility], [address], [place], [address], 9 09:37:16 urinal ysis, dipsti ck 2018 019 In-Office Order, Internal Use Only DO Not Attach Compendium DO Not Attach Compendium, Do Not Delete/merge, [id number] 14:01:25 unlist ed lab - TSH reflex to t4f 2016 017 KATRIN [facility], [address] [facility], [address], [place], [address], 7 12:13:36 vitami n D, 25-hyd anthony, total, serum 2016 017 DURAND [facility], [address] [facility], [address], [place], [address], 7 12:13:35 CBC 2016 017 DURAND [facility], [address] [facility] [address], [address], [place], [address], 7 12:13:34 BMP, serum or plasma 2016 017 DURAND [facility], [address] [facility], [address], [place], [address], 7 12:13:35 Referral neurol ogist referr al - Please contac t patien t for appt, patien t can be seen by any availa ble provid er 2024 025 KATRIN De Luna MD (Neurology), [address] [place] [address] George Cooper, [place], [address], 10:40:36 cognit suzy & behavi oral psycho logist referr al - Please contac t patien t for appt, thanks ! 2024 025 YANA / [facility], [address] [place], [address], 5 17:40:39 sleep medici ne referr al - Please contac t patien t to raymundou yfn an appoin tment, Thank you. 2020 021 ELROYREGENCY MERIDIANPaty Johnson MD, [address] [facility] , [facility] [address], [place], [address], 1 17:34:42 plasti c surgeo n referr al 2017 018 KATRIN Kirkpatrick MD, [address] [facility] [address], [place], [address], 9 10:51:02 plasti c surgeo n referr al 2016 017 KATRIN bahena MD, [facility], [address], [address], 7 18:22:17 Procedures None record ed. Surgeries None record ed. Imaging XR, cervic al spine, 2 or 3 view 2024 025 [facility] (Imaging), [address] [facility] [address], [place], [address], 5 10:22:08 holter monito r 2016 017 [facility] (Rad), [address] [facility] , [place], [address], 7 13:00:33 Medication Orders ondans etron 4 mg disint egrati ng tablet 2017 018 [facility][id number], [address], [place], [id number], 15:20:39 Relpax 40 mg tablet 2017 018 [id number], [address] [place], [id number], 15:20:21 buspir one 7.5 mg tablet 2016 017 silvina burgess [id number], [address], [place], [place], [id number], 7 18:15:41 Patient TargetsNo targets recorded. Patient Instructions Encounter Date Encounter Id Patient Instructions Last Modified By Organization Details Last Modified Time 08/16/2017 [id number] anxiety disorder : care instructions Not available 08/16/2017 12:56:45 09/14/2018 [id number] nausea and vomiting: care instructions Not available 09/14/2018 11:43:33 02/26/2021 [id number] follow up will b e pending outcome of the testing-- may need neurology referral if diagnosis cannot be made based on ordered testing Not available 02/26/2021 23:17:26 Reason for Referral Plastic Surgeon Referral for Epidermoid cyst mid forehead cyst Referring Physician: Linda Patrick [facility], Encounter Date: 08/16/2017 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 Referring Physician: Linda Patrick [facility], Encounter Date: 02/26/2021 Neurologist Referral for His tory of cerebrovascular accident Please contact patient for appt, patient can be seen by any available provider Referring Physician: Family Mallory Gee, Encounter Date: 10/30/2024 Cognitive & Behavioral Psych ologist Referral for History of cerebrovascular accident Please contact patient for appt, thanks! Referring Physician: Family Mallory Gee, Encounter Date: 10/30/2024 Results Created Date Observation Date Name Description Value Unit Range Abnormal Flag Note LastModifiedBy Organization Detail LastModifiedTime 08/16/20 17 08/17/2017 CBC WBC 9.1 x10e3 /uL 3.4-10 .8 Not Available [facility] ([facility]) [address] [facility], [place], [address], 08/17/2017 12:13:34 08/16/20 17 08/17/2017 CBC RBC 4.37 x10e6 /uL 3.77-5 .28 Not Available [facility] ([facility]) [address] [facility] [place], [address], 08/17/2017 12:13:34 08/16/20 17 08/17/2017 CBC hemoglobin 14.3 g/dL 11.1-1 5.9 Not Available [facility] ([facility]) [address] [facility] [place], [address], 08/17/2017 12:13:34 08/16/20 17 08/17/2017 CBC hematocrit 41.5 % 34.0-4 6.6 Not Available [facility] ([facility]) [address] [facility] [place], [address], 08/17/2017 12:13:34 08/16/20 17 08/17/2017 CBC MCV 95 fL 79-97 Not Available [facility] ([facility]) [address] [facility] [place], [address], 08/17/2017 12:13:34 08/16/20 17 08/17/2017 CBC MCH 32.7 pg 26.6-3 3.0 Not Available [facility] ([facility]) [address] [facility] [place], [address], 08/17/2017 12:13:34 08/16/20 17 08/17/2017 CBC MCHC 34.5 g/dL 31.5-3 5.7 Not Available [facility] ([facility]) [address] [facility] [place], [address], 08/17/2017 12:13:34 08/16/20 17 08/17/2017 CBC RDW 12.4 % 12.3-1 5.4 Not Available [facility] ([facility]) [address] [facility], [place], [address], 08/17/2017 12:13:34 08/16/20 17 08/17/2017 CBC platelets 241 x10e3 /uL 150-37 9 Not Available [facility] ([facility]) [address] [facility], [place], [address], 08/17/2017 12:13:34 08/16/20 17 08/17/2017 CBC neutrophils 66 % not estab. Not Available [facility] ([facility]) [address] [facility], [place], [address], 08/17/2017 12:13:34 08/16/20 17 08/17/2017 CBC lymphs 26 % not estab. Not Available [facility] ([facility]) [address] [facility], [place], [address], 08/17/2017 12:13:34 08/16/20 17 08/17/2017 CBC monocytes 7 % not estab. Not Available [facility] ([facility]) [address] [facility], [place], [address], 08/17/2017 12:13:34 08/16/20 17 08/17/2017 CBC eos 1 % not estab. Not Available [facility] ([facility]) [address] [facility], [place], [address], 08/17/2017 12:13:34 08/16/20 17 08/17/2017 CBC basos 0 % not estab. Not Available [facility] ([facility]) [address] [facility], [place], [address], 08/17/2017 12:13:34 08/16/20 17 08/17/2017 CBC immature cells [employer]OT[employer]ICE PROFESSIONAL Not Available [facility] ([facility]) [address] [facility], [place], [address], 08/17/2017 12:13:34 08/16/20 17 08/17/2017 CBC neutrophils (absolute) 6.1 x10e3 /uL 1.4-7. 0 Not Available [facility] ([facility]) [address] [facility], [place], [address], 08/17/2017 12:13:34 08/16/20 17 08/17/2017 CBC lymphs (absolute) 2.4 x10e3 /uL 0.7-3. 1 Not Available [facility] ([facility]) [address] [facility], [place], [address], 08/17/2017 12:13:34 08/16/20 17 08/17/2017 CBC monocytes(ab solute) 0.6 x10e3 /uL 0.1-0. 9 Not Available [facility] ([facility]) [address] [facility], [place], [address], 08/17/2017 12:13:34 08/16/20 17 08/17/2017 CBC eos (absolute) 0.1 x10e3 /uL 0.0-0. 4 Not Available [facility] ([facility]) [address] [facility], [place], [address], 08/17/2017 12:13:34 08/16/20 17 08/17/2017 CBC baso (absolute) 0.0 x10e3 /uL 0.0-0. 2 Not Available [facility] ([facility]) [address] [facility], [place], [address], 08/17/2017 12:13:34 08/16/20 17 08/17/2017 CBC immature granulocytes 0 % not estab. Not Available [facility] ([facility]) [address] [facility], [place], [address], 08/17/2017 12:13:34 08/16/20 17 08/17/2017 CBC immature grans (abs) 0.0 x10e3 /uL 0.0-0. 1 Not Available [facility] ([facility]) [address] [place], [address], 08/17/2017 12:13:34 08/16/20 17 08/17/2017 CBC NRBC AUTOMOT[employer] SERVICE PROFESSIONAL Not Available [facility] ([facility]) [address] [facility] [place], [address], 08/17/2017 12:13:34 08/16/20 17 08/17/2017 CBC hematology comments: AUTOMOTIVE SERVICE PROFESSIONAL Not Available [facility] ([facility]) [address] [facility] [place], [address], 08/17/2017 12:13:34 08/16/20 17 08/17/2017 BMP, serum or plasm a glucose, serum 90 mg/dL 65-99 Not Available [facility] ([facility]) [address] [facility] [place], [address], 08/17/2017 12:13:35 08/16/20 17 08/17/2017 BMP, serum or plasm a BUN 12 mg/dL 6-20 Not Available [facility] ([facility]) [address] [facility] [place], [address], 08/17/2017 12:13:35 08/16/20 17 08/17/2017 BMP, serum or plasm a creatinine, serum 0.78 mg/dL 0.57-1 .00 Not Available [facility] ([facility]) [address] [facility] [place], [address], 08/17/2017 12:13:35 08/16/20 17 08/17/2017 BMP, serum or plasm a eGFR if nonafricn AM 105 mL/mi n/1.7 3 >59 Not Available [facility] ([facility]) [address] [facility] [place], [address], 08/17/2017 12:13:35 08/16/20 17 08/17/2017 BMP, serum or plasm a eGFR if africn AM 121 mL/mi n/1.7 3 >59 Not Available [facility] ([facility]) [address] [place], [address], 08/17/2017 12:13:35 08/16/20 17 08/17/2017 BMP, serum or plasm a BUN/creatini ne ratio 15 9-23 Not Available [facility] ([facility]) [address] [place], [address], 08/17/2017 12:13:35 08/16/20 17 08/17/2017 BMP, serum or plasm a sodium, serum 143 mmol/ L 134-14 4 Not Available [facility] ([facility]) [address] [place], [address], 08/17/2017 12:13:35 08/16/20 17 08/17/2017 BMP, serum or plasm a potassium, serum 4.0 mmol/ L 3.5-5. 2 Not Available [facility] ([facility]) [address] [facility], [place], [address], 08/17/2017 12:13:35 08/16/20 17 08/17/2017 BMP, serum or plasm a chloride, serum 102 mmol/ L 96-106 Not Available [facility] ([facility]) [address] [place], [address], 08/17/2017 12:13:35 08/16/20 17 08/17/2017 BMP, serum or plasm a carbon dioxide, total 23 mmol/ L 18-29 Not Available [facility] ([place] [facility]) [address] [place], [address], 08/17/2017 12:13:35 08/16/20 17 08/17/2017 BMP, serum or plasm a calcium, serum 9.7 mg/dL 8.7-10 .2 Not Available [facility] ([facility]) [address] [place], [address], 08/17/2017 12:13:35 08/16/20 17 08/17/2017 vitam in D, 25-hy droxy , total , serum vitamin D, 25-hydroxy 57.5 NG/mL 30.0-1 00.0 Vitam in D defic iency has been defin ed by the Insti tute of Medic ine and an Endoc rine Socie ty pract ice guide line as a level of serum 25-OH vitam in D less than 20 ng/mL (1,2) . The Endoc rine Socie ty went on to furth er defin e vitam in D insuf ficie ncy as a level betwe en 21 and 29 ng/mL (2). 1. IOM (Inst itute of Medic ine). 2009. Pratima ry refer ence intak es for calci um and D. Hardik roth [place]: [facility] . 2. He mendoza MF, Johnna reyes [place], Chato off-F errar i RABAGO, et al. Evalu ation , treat ment, and preve ntion of vitam in D defic iency : an Endoc rine Socie ty clini liss pract ice guide line. EM. 2010; 96(7) :1911 -30. Not Available [facility] ([facility]) [address] [place], [address], 08/17/2017 12:13:35 08/16/20 17 08/17/2017 TSH, serum , refle x free T4 TSH 0.923 uIU/m L 0.450- 4.500 Not Available [facility] ([facility]) [address] [place], [address], 08/17/2017 12:13:36 12/03/19 19 12/06/2018 cultu re, urine urine culture, routine Final report abnormal Not Available [facility] ([facility]) [address] [place], [address], 12/06/2018 09:37:16 12/03/19 19 12/06/2018 cultu re, urine result 1 Escher ichia coli abnormal Great er than 100,0 00 colon y formi ng units per mL Cefaz jackelin <=4 ug/mL Cefaz jackelin with an ABIGAIL <=16 predi cts susce ptibi lity to the oral agent s cefac sheba, cefdi alphonse, cefpo doxim e, cefpr ozil, cefur oxime , cepha lexin , and lorac arbef when used for thera py of uncom plica westley urina ry tract infec tions due to E. coli, Klebs iella pneum oniae , and Prote us mirab ilis. Not Available [facility] ([facility]) [address] [facility], [place], [address], 12/06/2018 09:37:16 12/03/1912/06/2018 cultu re, urine antimicrobia l susceptibili ty Commen t S = Susce ptibl e; I = Inter media te; R = Resis tant P = Posit suzy; N = Negat suzy MICS are expre ssed in micro grams per mL Antib iotic RSLT# 1 RSLT# 2 RSLT# 3 RSLT# 4 Amoxi cilli n/Cla vulan ic Acid R Ampic illin R Cefep earle S Ceftr iaxon e S Cefur oxime S Cipro floxa meghana S Ertap enem S Genta micin S Imipe nem S Levof loxac in S Merop enem S Nitro furan toin S Piper acill in/Ta zobac esquivel R Tetra cycli ne S Tobra mycin S Trime thopr im/Pierson lfa S Not Available [facility] ([facility]) [address] [facility], [place], [address], 12/06/2018 09:37:16 12/03/1912/03/2018 urina lysis , dipst ick Leukocytes Modera te Not Available In-Office Order Internal Use Only DO Not Attach Compendium DO Not Attach Compendium, Do Not Delete/merge, [id number] 12/03/2018 12:21:54 12/03/1912/03/2018 urina lysis , dipst ick Nitrite positi ve Not Available In-Office Order Internal Use Only DO Not Attach Compendium DO Not Attach Compendium, Do Not Delete/merge, 12/03/2018 12:21:54 12/03/1912/03/2018 urina lysis , dipst ick Urobilinogen .2 Not Available In-Of fice Order Internal Use Only DO Not Attach Compendium DO Not Attach Compendium, Do Not Delete/merge, 12/03/2018 12:21:54 12/03/1912/03/2018 urina lysis , dipst ick Protein Negati ve Not Available In-Office Order Internal Use Only DO Not Attach Compendium DO Not Attach Compendium, Do Not Delete/merge, 12/03/2018 12:21:54 12/03/1912/03/2018 urina lysis , dipst ick pH 5.0 Not Available In-Office Order Internal Use Only DO Not Attach Compendium DO Not Attach Compendium, Do Not Delete/merge, 12/03/2018 12:21:54 12/03/1912/03/2018 urina lysis , dipst ick Blood Large Not Available In-Office Order Internal Use Only DO Not Attach Compendium DO Not Attach Compendium, Do Not Delete/merge, 12/03/2018 12:21:54 12/03/1912/03/2018 urina lysis , dipst ick Specific [place] 1.010 Not Available In-Off ice Order Internal Use Only DO Not Attach Compendium DO Not Attach Compendium, Do Not Delete/merge, 12/03/2018 12:21:54 12/03/1912/03/2018 urina lysis , dipst ick Ketone Negati ve Not Available In-Office Order Internal Use Only DO Not Attach Compendium DO Not Attach Compendium, Do Not Delete/merge, 12/03/2018 12:21:54 12/03/1912/03/2018 urina lysis , dipst ick Bilirubin Negati ve Not Available In-Office Order Internal Use Only DO Not Attach Compendium DO Not Attach Compendium, Do Not Delete/merge, 12/03/2018 12:21:54 12/03/1912/03/2018 urina lysis , dipst ick Glucose Negati ve Not Available In-Office Order Internal Use Only DO Not Attach Compendium DO Not Attach Compendium, Do Not Delete/merge, [id number] 12/03/2018 12:21:54 12/03/1912/03/2018 urina lysis , dipst ick Appearance Cloudy Not Available In-Offi ce Order Internal Use Only DO Not Attach Compendium DO Not Attach Compendium, Do Not Delete/merge, [id number] 12/03/2018 12:21:54 12/03/1912/03/2018 urina lysis , dipst ick Color Yellow Not Available In-Office Order Internal Use Only DO Not Attach Compendium DO Not Attach Compendium, Do Not Delete/merge, 12/03/2018 12:21:54 02/27/2002/27/2021 TSH + free T4, serum TSH 0.867 uIU/m L 0.450- 4.500 Not Available [facility] ([facility]) [address] [place], [address], 02/27/2021 09:13:03 02/27/2002/27/2021 TSH + free T4, serum T4,free(dire ct) 1.32 NG/dL 0.82-1 .77 Not Available [facility] ([facility]) [address] [place], [address], 02/27/2021 09:13:03 02/27/2002/27/2021 CBC w/ auto diff WBC 7.9 x10e3 /uL 3.4-10 .8 Not Available [facility] ([facility]) [address] [place], [address], 02/27/2021 09:13:04 02/27/2002/27/2021 CBC w/ auto diff RBC 4.07 x10e6 /uL 3.77-5 .28 Not Available [facility] ([facility]) [address] [place], [address], 02/27/2021 09:13:04 02/27/20 21 02/27/2021 CBC w/ auto diff hemoglobin 13.4 g/dL 11.1-1 5.9 Not Available [facility] ([facility]) [address] [place], [address], 02/27/2021 09:13:04 02/27/20 21 02/27/2021 CBC w/ auto diff hematocrit 40.3 % 34.0-4 6.6 Not Available [facility] ([facility]) [address] [facility], [place], [address], 02/27/2021 09:13:04 02/27/2002/27/2021 CBC w/ auto diff MCV 99 fL 79-97 above high normal Not Available [facility] ([facility]) [address] [facility], [place], [address], 02/27/2021 09:13:04 02/27/2002/27/2021 CBC w/ auto diff MCH 32.9 pg 26.6-3 3.0 Not Available [facility] ([facility]) [address] [place], [address], 02/27/2021 09:13:04 02/27/2002/27/2021 CBC w/ auto diff MCHC 33.3 g/dL 31.5-3 5.7 Not Available [facility] ([facility]) [address] [place], [address], 02/27/2021 09:13:04 02/27/2002/27/2021 CBC w/ auto diff RDW 11.5 % 11.7-1 5.4 below low normal Not Available [facility] ([facility]) [address] [place], [address], 02/27/2021 09:13:04 02/27/20 21 02/27/2021 CBC w/ auto diff platelets 229 x10e3 /uL 150-45 0 Not Available [facility] ([facility]) [address] [place], [address], 02/27/2021 09:13:04 02/27/20 21 02/27/2021 CBC w/ auto diff neutrophils 60 % not estab. Not Available [facility] ([facility]) [address] [facility], [place], [address], 02/27/2021 09:13:04 02/27/20 21 02/27/2021 CBC w/ auto diff lymphs 34 % not estab. Not Available [facility] ([facility]) [address] [place], [address], 02/27/2021 09:13:04 02/27/20 21 02/27/2021 CBC w/ auto diff monocytes 5 % not estab. Not Available [facility] ([facility]) [address] [place], [address], 02/27/2021 09:13:04 02/27/20 21 02/27/2021 CBC w/ auto diff eos 1 % not estab. Not Available [facility] ([facility]) [address] [place], [address], 02/27/2021 09:13:04 02/27/20 21 02/27/2021 CBC w/ auto diff basos 0 % not estab. Not Available [facility] ([facility]) [address] [facility], [place], [address], 02/27/2021 09:13:04 02/27/20 21 02/27/2021 CBC w/ auto diff immature cells AUTOMOTIVE SERVICE PROFESSIONAL Not Available [facility] ([facility]) [address] [place], [address], 02/27/2021 09:13:04 02/27/20 21 02/27/2021 CBC w/ auto diff neutrophils (absolute) 4.8 x10e3 /uL 1.4-7. 0 Not Available [facility] ([facility]) [address] [place], [address], 02/27/2021 09:13:04 02/27/20 21 02/27/2021 CBC w/ auto diff lymphs (absolute) 2.7 x10e3 /uL 0.7-3. 1 Not Available [facility] ([facility]) [address] [facility], [place], [address], 02/27/2021 09:13:04 02/27/20 21 02/27/2021 CBC w/ auto diff monocytes(ab solute) 0.4 x10e3 /uL 0.1-0. 9 Not Available [facility] ([facility]) [address] [facility], [place], [address], 02/27/2021 09:13:04 02/27/20 21 02/27/2021 CBC w/ auto diff eos (absolute) 0.0 x10e3 /uL 0.0-0. 4 Not Available [facility] ([facility]) [address] [facility], [place], [address], 02/27/2021 09:13:04 02/27/2002/27/2021 CBC w/ auto diff baso (absolute) 0.0 x10e3 /uL 0.0-0. 2 Not Available [facility] ([facility]) [address] [facility], [place], [address], 02/27/2021 09:13:04 02/27/20 21 02/27/2021 CBC w/ auto diff immature granulocytes 0 % not estab. Not Available [facility] ([facility]) [address] [facility], [place], [address], 02/27/2021 09:13:04 02/27/20 21 02/27/2021 CBC w/ auto diff immature grans (abs) 0.0 x10e3 /uL 0.0-0. 1 Not Available [facility] ([facility]) [address] [facility], [place], [address], 02/27/2021 09:13:04 02/27/20 21 02/27/2021 CBC w/ auto diff NRBC AUT[employer]OTIVE SERVICE PROFESSIONAL Not Available [facility] ([facility]) [address] [facility] [place], [address], 02/27/2021 09:13:04 02/27/20 21 02/27/2021 CBC w/ auto diff hematology comments: AUTOMOTIVE SERVICE PROFESSIONAL Not Available [facility] ([facility]) [address] [facility] [place], [address], 02/27/2021 09:13:04 02/27/20 21 02/27/2021 CMP, serum or plasm a glucose 98 mg/dL 65-99 Not Available [facility] ([facility]) [address] [facility] [place], [address], 02/27/2021 09:13:04 02/27/20 21 02/27/2021 CMP, serum or plasm a BUN 14 mg/dL 6-20 Not Available [facility] ([facility]) [address] [facility] [place], [address], 02/27/2021 09:13:04 02/27/20 21 02/27/2021 CMP, serum or plasm a creatinine 0.91 mg/dL 0.57-1 .00 Not Available [facility] ([facility]) [address] [facility] [place], [address], 02/27/2021 09:13:04 02/27/20 21 02/27/2021 CMP, serum or plasm a eGFR if nonafricn AM 85 mL/mi n/1.7 3 >59 Not Available [facility] ([facility]) [address] [facility] [place], [address], 02/27/2021 09:13:04 02/27/20 21 02/27/2021 CMP, serum or plasm a eGFR if africn AM 98 mL/mi n/1.7 3 >59 Lab mathieu curre ntly repor ts eGFR in compl iance with the sourav nt recom menda tions of the [facility] . [facility] will updat e repor ting as new guide lines are publi shed from the [facility]-A SN Task force . Not Available [facility] ([facility]) [address] [place], [address], 02/27/2021 09:13:04 02/27/20 21 02/27/2021 CMP, serum or plasm a BUN/creatini ne ratio 15 9-23 Not Available [facility] ([facility]) [address] [place], [address], 02/27/2021 09:13:04 02/27/20 21 02/27/2021 CMP, serum or plasm a sodium 139 mmol/ L 134-14 4 Not Available [facility] ([facility]) [address] [place], [address], 02/27/2021 09:13:04 02/27/20 21 02/27/2021 CMP, serum or plasm a potassium 4.0 mmol/ L 3.5-5. 2 Not Available [facility] ([facility]) [address] [place], [address], 02/27/2021 09:13:04 02/27/20 21 02/27/2021 CMP, serum or plasm a chloride 101 mmol/ L 96-106 Not Available [facility] ([facility]) [address] [place], [address], 02/27/2021 09:13:04 02/27/20 21 02/27/2021 CMP, serum or plasm a carbon dioxide, total 26 mmol/ L 20-29 Not Available [facility] ([facility]) [address] [place], [address], 02/27/2021 09:13:04 02/27/20 21 02/27/2021 CMP, serum or plasm a calcium 9.3 mg/dL 8.7-10 .2 Not Available [facility] ([facility]) [address] [facility] [place], [address], 02/27/2021 09:13:04 02/27/2002/27/2021 CMP, serum or plasm a protein, total 6.9 g/dL 6.0-8. 5 Not Available [facility] ([facility]) [address] [facility] [place], [address], 02/27/2021 09:13:04 02/27/2002/27/2021 CMP, serum or plasm a albumin 4.3 g/dL 3.9-5. 0 Not Available [facility] ([facility]) [address] [facility] [place], [address], 02/27/2021 09:13:04 02/27/2002/27/2021 CMP, serum or plasm a globulin, total 2.6 g/dL 1.5-4. 5 Not Available [facility] ([facility]) [address] [facility] [place], [address], 02/27/2021 09:13:04 02/27/2002/27/2021 CMP, serum or plasm a A/G ratio 1.7 1.2-2. 2 Not Available [facility] ([facility]) [address] [facility] [place], [address], 02/27/2021 09:13:04 02/27/2002/27/2021 CMP, serum or plasm a bilirubin, total 0.3 mg/dL 0.0-1. 2 Not Available [facility] ([facility]) [address] [facility] [place], [address], 02/27/2021 09:13:04 02/27/2002/27/2021 CMP, serum or plasm a alkaline phosphatase 63 IU/L 39-117 Not Available [facility] ([facility]) [address] [place], [address], 02/27/2021 09:13:04 02/27/20 21 02/27/2021 CMP, serum or plasm a AST (SGOT) 16 IU/L 0-40 Not Available [facility] ([facility]) [address] [facility], [place], [address], 02/27/2021 09:13:04 02/27/20 21 02/27/2021 CMP, serum or plasm a ALT (SGPT) 10 IU/L 0-32 Not Available [facility] ([facility]) [address] [facility], [place], [address], 02/27/2021 09:13:04 02/27/2002/27/2021 vitam in B12 + folat e, serum or blood vitamin B12 624 pg/mL 232-12 45 Not Available [facility] ([facility]) [address] [facility], [place], [address], 02/27/2021 09:13:05 02/27/2002/27/2021 vitam in B12 + folat e, serum or blood folate (folic acid), serum 10.5 NG/mL >3.0 A serum folat e alice ntrat ion of less than 3.1 ng/mL is consi dered to repre sent clini liss defic iency . Not Available [facility] ([facility]) [address] [facility], [place], [address], 02/27/2021 09:13:05 10/30/1910/30/2024 XR, cervi liss spine , 2 or 3 view No observ ation record ed. [facility] [address], [place], [address], 10/31/2024 12:24:38 Result Notes None recorded. Problems Name Problem SNOMED Code Status Onset Date Resolution Date Notes Provider Name and Address Organization Details Recorded Time Fatigue 59796819 Active 2020 Linda Patrick MD Attn: Accounting ,[address] [facility], [place], [address] , [facility] 1 23:17:27 Hypersomnia 02263027 Active 2020 Linda Patrick MD Attn: Accounting ,[address] [facility], [place], [address] , [facility] 1 23:17:28 History of cerebrovasc ular accident 348469944 Active 2024 APURVA Gee Attn: Accounting ,[address] [facility], [place], [address] , [facility] 5 10:05:13 Malaise and fatigue 466602779 Active 2015 Location : None;Sev erity: Moderate ;Progres s: Stable;A dded By: Linda Patrick;Add to Current Problems : YES Not Available [facility] 7 11:19:23 Migraine with aura 7186241 Active 2011 Location : None;Sev erity: Moderate ;Progres s: Stable;A dded By: Pearl Almazan;Add to Current Problems : NO Not Available [facility] 11:19:23 Acne 55527879 Active 2015 Location : None;Sev erity: Moderate ;Progres s: Stable;A dded By: Zoraida Avalos; Add to Current Problems : YES Not Available [facility] 7 11:19:24 Problem Notes None recorded. Procedures Surgical History None recorded. Imaging Results Imaging Date Name Status LastModified by Organiz ation Details LastModified Time 10/30/2024 XR, cervical spine, 2 or 3 view completed [facility] [address], [place], [address], 10/31/2024 12:24:38 Procedure Notes None recorded. Medical Equipment None Reported. Allergies No known drug allergies Medications Name Sig Start Date Stop Date Status Note LastModified by Organization Details LastModified Time tetracyclin e 500 mg capsule TK ONE C PO Q 6 H 02/26 completed Not Available Not Available Not Available carisoprodo l 350 mg tablet TAKE 1 TABLET BY MOUTH EVERY 8 HOURS NEEDED FOR PAIN OR MUSCLE SPASM 10/30 completed Not Available Not Available Not Available cyclobenzap rine 10 mg tablet TAKE 1 TABLET BY MOUTH AT BEDTIME FOR 10 NIGHTS 10/30 completed Not Available Not Available Not Available bupropion HCl SR 150 mg tablet,12 hr sustained-r elease 10/30 completed Not Available Not Available Not Available Colace 100 mg capsule TAKE ONE CAPSULE BY MOUTH TWICE DAILY 10/30 completed Not Available Not Available Not Available azithromyci n 250 mg tablet TAKE 2 TABLETS (500 MG) BY ORAL ROUTE ONCE DAILY FOR 1 DAY THEN 1 TABLET (250 MG) BY ORAL ROUTE ONCE DAILY FOR 4 DAYS 08/16 completed Not Available Not Available Not Available fluconazole 150 mg tablet TK ONE T PO TODAY 02/26 completed Not Available Not Available Not Available valacyclovi r 1 gram tablet TAKE 1 TABLET BY MOUTH EVERY 12 HOURS DIRECTED active Not Available Not Available No t Available sumatriptan 100 mg tablet one twice a day as needed for migraine 02/26 completed Not Available Not Available Not Available ondansetron HCl 4 mg tablet TAKE 1 TABLET BY MOUTH EVERY 6 HOURS NEEDED FOR NAUSEA 10/30 completed Not Available Not Available Not Available prednisone 20 mg tablet 10/30 completed Not Available Not Available Not Available acyclovir 400 mg tablet 02/26 completed Not Available Not Available Not Available valacyclovi r 500 mg tablet TAKE 1 TABLET BY MOUTH DAILY 10/30 completed Not Available Not Available Not Available tramadol 50 mg tablet TAKE 1 TABLET BY MOUTH EVERY 6 HOURS NEEDED FOR PAIN 10/30 completed Not Available Not Available Not Available ketorolac 10 mg tablet TAKE 1 TABLET BY MOUTH THREE TIMES DAILY NEEDED FOR PAIN. 10/30 completed Not Available Not Available Not Available oxycodone-a cetaminophe n 5 mg-325 mg tablet TAKE 1 TABLET BY MOUTH EVERY 6 HOURS NEEDED FOR PAIN 10/30 completed Not Available Not Available Not Available alprazolam 0.25 mg tablet TAKE 1 TABLET BY MOUTH TWICE DAILY NEEDED FOR ANXIETY 10/30 completed Not Available Not Available Not Available cephalexin 500 mg capsule TK 1 C PO QID 02/26 completed Not Available Not Available Not Available buspirone 7.5 mg tablet Take 1 tablet twice a day by oral route. 09/27 completed Not Available Not Available Not Available methylpredn isolone 4 mg tablets in a dose pack Take 1 package by oral route. 08/16 completed Not Available Not Available Not Available ondansetron 4 mg disintegrat ing tablet Take 1 tablet 3 times a day by oral route as needed. 02/26 completed Not Available Not Available Not Available sertraline 50 mg tablet TAKE 1 TABLET BY MOUTH EVERY NIGHT AT BEDTIME 10/30 completed Not Available Not Available Not Available naproxen 500 mg tablet TAKE 1 TABLET BY MOUTH TWICE DAILY WITH FOOD 10/30 completed Not Available Not Available Not Available amoxicillin 875 mg-potassiu m clavulanate 125 mg tablet 02/26 completed Not Available Not Available Not Available Inderal LA 60 mg capsule,ext ended release Take 1 capsule(s ) by mouth daily 03/15 completed RxNor m: [id number];All ow Subst ituti on: True Not Available Not Available Not Available amoxicillin 500 mg-potassiu m clavulanate 125 mg tablet 02/26 completed Not Available Not Available Not Available clindamycin phosphate 1 % topical solution Apply Twice a day, as needed 09/14 completed Not Available Not Available Not Available eletriptan 40 mg tablet TAKE 1 TABLET BY MOUTH DIRECTED 02/26 completed Not Available Not Available Not Available bupropion HCl XL 300 mg 24 hr tablet, extended release TAKE 1 TABLET BY MOUTH EVERY DAY 10/30 completed Not Available Not Available Not Available escitalopra m 5 mg tablet TAKE 1 TABLET BY MOUTH EVERY DAY AT BEDTIME 09/14 completed Not Available Not Available Not Available nitrofurant oin monohydrate /macrocryst als 100 mg capsule Take 1 capsule twice a day by oral route for 7 days. 02/26 completed Not Available Not Available Not Available Tri-Lo-Spri ntec 0.18 mg/0.215 mg/0.25 mg-25 mcg tablet TAKE 1 TABLET BY MOUTH EVERY DAY 10/30 completed Not Available Not Available Not Available Eliquis 5 mg tablet TAKE 1 TABLET TWICE DAILY active Not Available Not Available No t Available Slynd 4 mg (28) tablet TAKE 1 TABLET BY MOUTH EVERY DAY DIRECTED active Not Available Not Available No t Available Vitals Date Recorded Body weight Body temperature Oxygen saturation Oxygen saturation in Arterial blood by Pulse oximetry Heart rate Body height Body mass index (BMI) Systolic blood pressure Diastolic blood pressure Provider Name and Address Organization Details Last Updated DateTime 8 42281.3 7 g 97.2 [degF] 99 % 99 % 79 /min 177.8 cm 23.1 kg/m2 104 mm[Hg] 70 mm[Hg] America Packer MA [facility] 8 11:11:50 Date Recorded Body weight Body height Body mass index (BMI) Body temperature Oxygen saturation Oxygen saturation in Arterial blood by Pulse oximetry Heart rate Systolic blood pressure Diastolic blood pressure Provider Name and Address Organization Details Last Updated DateTime 1 34388.0 7 g 177.8 cm 23.1 kg/m2 97.9 [degF] 98 % 98 % 84 /min 116 mm[Hg] 72 mm[Hg] Catalina Larson MA [facility] 1 15:27:42 Date Recorded Body weight Body mass index (BMI) Body height Body temperature Oxygen saturation Oxygen saturation in Arterial blood by Pulse oximetry Heart rate Systolic blood pressure Diastolic blood pressure Provider Name and Address Organization Details Last Updated DateTime 5 04107.9 3 g 24 kg/m2 177.8 cm 97.2 [degF] 99 % 99 % 71 /min 122 mm[Hg] 81 mm[Hg] Jeanette Camarillo MA [facility] 5 12:40:24 Date Recorded Body height Body mass index (BMI) Body weight Body temperature Oxygen saturation Oxygen saturation in Arterial blood by Pulse oximetry Heart rate Systolic blood pressure Diastolic blood pressure Provider Name and Address Organization Details Last Updated DateTime 7 179.07 cm 22.3 kg/m2 18781.5 9 g 97 [degF] 99 % 99 % 86 /min 116 mm[Hg] 70 mm[Hg] Marium Liu MA [facility] 7 12:21:53 Social History Question Answer Notes LastModified by Organizat ion Details LastModified Time Tobacco Smoking Status Never Smoker Gisella Guan [facility], [place] - [facility] 10/11/2016 12:43:21 Do You Have An Advance Directive? No Information n ot available 02/26/2021 What Is Your Level Of Alcohol Consumption? Occasional Information not available 02/26/2021 Are You Blind Or Do You Have Difficulty Seeing? No Information n ot available 02/26/2021 What Is Your Level Of Caffeine Consumption? Occasional Information not available 02/26/2021 In The 14 Days Before Symptom Onset, Have You Had Close Contact With A Laboratory-confirm ed COVID-19 While That Case Was Ill? No Information n ot available 02/26/2021 In The 14 Days Before Symptom Onset, Have You Had Close Contact With A Person Who Is Under Investigation For COVID-19 While That Person Was Ill? No Information not available 02/26/2021 Have You Been To An Area Known To Be High Risk For COVID-19? No Information not available 02/26/2021 Are You Currently Employed? Yes Information not available 02/26/2021 Are You Deaf Or Do You Have Serious Difficulty Hearing? No Information not available 02/26/2021 What Type Of Diet Are You Following? REGULAR Information n ot available 02/26/2021 What Was The Date Of Your Most Recent Tobacco Screening? 10/30/2024 [email or web address] Information not available 10/30/2024 What Is Your Relationship Status? Single Information not available 02/26/2021 Do You Use Your Seat Belt Or Car Seat Routinely? Yes Information not available 02/26/2021 Do You Have Smoke And Carbon Monoxide Detectors In Your Home? Yes Information not available 02/26/2021 Are You Passively Exposed To Smoke? No Information no t available 02/26/2021 Do You Feel Stressed (tense, Restless, Nervous, Or Anxious, Or Unable To Sleep At Night)? [id number] Information not available 02/26/2021 Do You Use Any Illicit Or Recreational Drugs? No Information not available 02/26/2021 Sex: Female Functional Status Question Answer Note LastModified by Organizat ion Details LastModified Time Are you able to care for yourself? Yes Information not available 02/26/2021 What is your exercise level? Occasional Information not available 02/26/2021 Mental Status None recorded. Family History Relationship Description Onset Age of this Age Resolved Age Notes LastModified by Organization Details LastModified Time Mother Disorder of thyroid gland [email or web address] Not available 12:58:48 Mother Migraine [email or web address] Not avail able 10/11/2016 12:58:56 Mother Cardiac arrhythmia [email or web address] Not available 15:23:33 Mother Neuropathy ssadlowskima Not dhruv ilable 09/21/2017 15:25:09 Unspecified Relation Coronary arterioscler osis great gf ssadlowskima Not available 09/21/2017 15:23:52 Unspecified Relation Hypertensive disorder grandm other [email or web address] Not available 09/21/2017 15:24:08 Brother Asthma ssadlowskima Not availa ble 09/21/2017 15:24:21 Brother Pervasive developmenta l disorder of residual state [email or web address] Not available 15:24:56 Maternal Aunt Migraine ssadlowskima No t available 09/21/2017 15:24:36 Medical History Condition Response Coronary Artery Disease N Other N Atrial Fibrillation N High Blood Pressure Y Depression Y COPD N Blood Clots N Anxiety Disorder Y Muscle, Joint, or Bone Problems Y Arthritis N Acid Reflux (GERD) N Cancer N Stroke Y Headaches Y Kidney or Bladder Problems N Have you had a mammogram in the last yea r? N Eating Disorder N Skin Problems N Asthma N Allergies N Have you had a PSA blood test in the las t year? N Substance Abuse N Hepatitis N ADHD N High Cholesterol Y Liver Disease N Schizophrenia N Thyroid Problems N GI Problems N Anemia N Heart Attack (NC) N Diabetes N Seizures/Epilepsy N Have you had a colonoscopy in the last 1 0 years? N Heart Failure N Osteoporosis N Gynecological History Statement/Question Response Menses Monthly Y Date of LMP 02/09/2021 Obstetrics History GPAL:G 1 P 1 0 0 0 Type Value Full Term 1 Total 1 Immunizations Vaccine Type Date Status Note Provider Nam e and Address Organization Details Recorded Time Hib, unspecified formulation 04/19/1991 completed APURVA Gee Attn: Accounting,[address] [facility], [place], [place], [address] [place] [address], [place] [facility] 10/30/2024 12:41:42 Hib, unspecified formulation 06/25/1991 completed APURVA Gee Attn: Accounting,[address] [facility], [place], [place], [address] [place] [address], [place] [facility] 10/30/2024 12:41:42 Hib, unspecified formulation 07/28/1992 completed APURVA Gee Attn: Accounting,[address] [facility], [place], [address] [place] [address], [place] [facility] 10/30/2024 12:41:42 MMR 07/28/1992 completed APURVA Gee Attn: Accounting,[address] [facility], [place], [place], [address] [place] [address], [place] [facility] 10/30/2024 12:41:42 COVID-19, mRNA, LNP-S, PF, 30 mcg/0.3 mL dose 06/10/2021 completed APURVA Gee Attn: Accounting,[address] [facility], [place], [address] [place] [address], [place] [facility] 10/30/2024 12:41:42 COVID-19, mRNA, LNP-S, PF, 30 mcg/0.3 mL dose 07/01/2021 completed APURVA Gee Attn: Accounting,[address] [facility], [place], [address] [place] [address], [place] [facility] 10/30/2024 12:41:42 DTP 01/29/1991 completed APURVA Gee Attn: Accounting,[address] [facility], [place], [place], [address] [place] [address], [place] [facility] 10/30/2024 12:41:42 DTP 04/19/1991 completed APURVA Gee Attn: Accounting,[address] [facility], [place], [address] [place] [address], [place] [facility] 10/30/2024 12:41:42 DTP 06/25/1991 completed APURVA Gee Attn: Accounting,[address] [facility], [place], [address], [place] [facility] 10/30/2024 12:41:42 DTP 07/28/1992 completed APURVA Gee Attn: Accounting,[address] [facility], [place], [address], [place] [facility] 10/30/2024 12:41:42 OPV 01/29/1991 completed APURVA Gee Attn: Accounting,[address] [place], [address], [place] [facility] 10/30/2024 12:41:42 OPV 04/19/1991 completed APURVA Gee Attn: Accounting,[address] [place], [address], [place] [facility] 10/30/2024 12:41:42 OPV 07/28/1992 completed AUPRVA Gee Attn: Accounting,[address] [place], [address], [place] [facility] 10/30/2024 12:41:42 Td(adult) unspecified formulation 05/26/2005 completed Gisella ortiz, [place] [facility] 10/11/2016 12:59:28 Past Encounters Encounter ID Performer Location Encounter Start Date Encounter Closed Date Diagnosis/Indication Diagnosis SNOMED-CT Code Diagnosis ICD10 Code Diagnosis Note [id number] Linda Patrick MD [facility] [address] [place] [address] 10/11/2016 12:59:59 10/12/2016 10:41:54 Inflammation of sacroiliac joint 59953567 M46.1 [id number] Bonnie Veloz [facility] [address] [place] [address] 11/02/2016 11:18:52 11/03/2016 11:58:11 Acute bacterial bronchitis 428400318 J20.9 Inflammati on of sacroiliac joint 50386801 M46.1 [id number] Linda Patrick MD [facility] [address] [place] [address] 08/16/2017 12:12:33 08/16/2017 13:13:54 Generalized anxiety disorder 70298277 F41.1 Tachycardia 0547835 R00. 0 Epidermoid cyst 11573038 6 L72.0 [id number] Linda Patrick MD [facility] [address] [place] [address] 09/14/2018 11:06:54 09/17/2018 10:07:29 Migraine without aura 88156754 G43.009 she will try to take the tab as needed for her RABAGO and if that is not effective- - she will call to try nasal IMITREX-- try avoidance of carb loading since this may be a trigger for you mood irritabili ty-- trial for 3 months of migraine treatment and will see how she is doing with it/ Not a bad idea to keep a diary with frequency and severity of migraine HAs Nausea 969030706 R11.0 use the anti - emetic as needed for the nausea effected the medication / migraines 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 Kirkpatrick and agrees that we make her appointmen t [id number] Pearl Marmolejo [facility] [address] [place] [address] 12/03/2018 12:05:48 12/04/2018 08:50:14 Blood in urine 08717440 R31.9 [id number] Linda Patrick MD [facility] [address] [place] [address] 02/26/2021 15:13:26 03/01/2021 09:43:29 Fatigue 02406804 R53.83 will check metabolic status with fatigue Hypersomnia 36311629 G47 .10 will get sleep eval-- concern for NARCOLEPSY [id number] APURVA Gee [facility] [address] [place] [address] 10/30/2024 11:47:02 10/31/2024 10:22:08 Adult health examination 778674108 Z00.00 History of cerebrovascular accident 082427690 Z86.73 Stop eliquis and start ASA 81mg per discharge summaryRef er to neurologis t for following, refer to CBT for mental healthIf neurology appointmen t is months away I will order a follow up CTA per discharge summary Neck pain 06438778 M54.2 Will update imaging given months of cervical pain prior to CVA Mixed anxi ety and depressive disorder 576935238 F41.8 Declines medication therapy at this time, but would like to get establishe d with a counselor Health Concerns Section Related Observation LastModified by Organization Detai ls LastModified Time None Recorded Concern Status LastModified by Organization Details LastModified Time None Recorded Advance Directives Directive N: Payers Encounter Date Sequence Insurance Name Policy Number Policy Trinh Covered Member ID Trinh Member ID Guarantor Name 08/16/2017 1 [place] [id number] Tuyet Brownlee [id number] Tuyet Brownlee 09/14/2018 1 [place] [facility] Tuyet Brownlee [id number] Tuyet Brownlee 12/03/2018 1 [facility] - DOS PRIOR TO 2021 (MEDICAID REPLACEMENT - HMO) Tuyet Brownlee [id number] Tuyet Brownlee 02/26/2021 1 [facility] [id number] Tuyet Brownlee [id number] Tuyet Brownlee 10/30/2024 1 [place] [facility] Tuyet Brownlee [id number] Tuyet Brownlee Notes Date Note Type Note Provider Name and Address Organization Details Recorded Time 08/16/2017 text/html Anxiety/Depressi onRepo rted bypatient.Quality:symp toms worse in the evening;symptoms worse during the day;mood worse;increased anxiety;panic symptoms Severity:denies suicidal ideations;interference with sleep;interference with work Duration:started: (6 months); symptoms lasting over 2 weeks Onset/Timing:still present Context:no major life stressors Associated Symptoms:high irritability;anxiety;r estlessness/agitation; feeling guilty;sleeping more (hypersomnia);stomach cramps;palpitations;he huan Patrick MD Attn: Accounting,[address] [place], [address], [facility] 08/16/2017 13:04:43 09/14/2018 text/html HeadacheReported bypatient.Location:top of the head Quality:not the worst headache ever;throbbing Severity:severe Duration:intermittent Onset/Timing:abrupt onset Context:not related to trauma; non menses so no cyclical nature to RABAGO Aggravating factors:loud noise; smells Alleviating factors:nothing gives relief Associated Symptoms:tearing/water y eyes; normal feeling/sensation;naus ea;vomiting;rhinorrhea ;double vision;dizziness; avoiding caffeine. She does sleep alot and falls asleep easily-- fell asleep while reading a story to her sonNotes:symptoms are happening weekly recently. Trying not to call in work with new position Linda Patrick MD Attn: Accounting,[address] [place], [address], [facility] 09/14/2018 11:51:06 02/26/2021 text/html FatigueReported bypatient.Quality:cont inuous Severity:normal sleep patterns; normal exercise habits; normal activity; severe Duration:constant Timing:worse Context:no problems/stress at work or home;symptoms do not improve on weekends/vacations; 1 kids at home Modifying Factors:no new stressors in life;not taking vitamins Associated Symptoms:no drug/alcohol withdrawal; periods of not breathing (apnea) have not been observed; no recent change in weight;depression;anxi ety;suddenly falling asleep during the day;snoringNotes:sleep s 10 hours . No waking up through the night. Has to take a nap if driving more than 1 hour . Falls asleep at work and with her son Linda Patrick MD Attn: Accounting,[address] [place], [address], [facility] 02/26/2021 23:17:40 10/30/2024 text/html StrokeReported bypatient.Hand Dominance:right Location:bilateral symptoms; right side went numb Duration:happened 3 months ago Context:warning signs prior to onset; pt says she had a pain behind her right eyeNotes:Has full mobility but feels like shes in the body of an 87 years old She is driving and not having any issuesFull function of arms and legs and speechReally scared to do any heavy liftingHaving some depression and anxiety along with this Pt here to re-establish care, had a stroke 3 months ago. Did not have insurance so has not seen any medical technologist chief since she was discharged. She has continued on eliquis as she was too scared to stop it. She was having some neck pain in early july, went to the chiropractor, and had a bilateral stroke afterwards. She was hospitalized. APURVA Gee Attn: Accounting,[address] [place], [address], [facility] 10/30/2024 14:13:28 OBGyn Episode No OBEpisode recorded.
--- OUTSIDE RECORDS SUMMARY | 2024-12-29 13:04 | XMS_ITS | Encounter Summary ---
Author Organization [facility] Healthcare Address [address] [place] [address] Care Team Providers Care Disaster Recovery Coordinator Name Role Phone Linda Light MD Primary Care Provider [phone] Reason for Visit * Reason Onset Date Comments Medication Problem 12/09/2024 Encounter Details Date Type Department Care Team (Late st Contact Info) Description 12/09/2024 Telephone [facility] Neurology [address] [phone] Althea Rodriguez NP [address] [address] Medication Problem Social History Tobacco Use Types Packs/Day Years [...] on file Legal Sex Female 12:12 AM CANCER PROGRAM DIRECTOR Gender Identity Not on file Sexual Orientation Not on file documented as of this encounter Miscellaneous Notes * Telephone Encounter - Althea Rodriguez NP - 12/10/2024 12:19 PM CANCER PROGRAM DIRECTOR Can we please get the results from her CTA. I believe she had this done at [facility]. ER PROGRAM DIRECTOR * Telephone Encounter - Althea Rodriguez NP - 12/09/2024 3:14 PM CANCER PROGRAM DIRECTOR I have no results from a CTA. Can we please check on this? I also never started the patient on Eliquis. This should be managed by neurology at [facility]. I have referred her to neurology at [facility] but it states denied. Can we please check on the reason for denial. ER PROGRAM DIRECTOR * Telephone Encounter - India Garcia - 12/09/2024 1:44 PM CST [facility] The patient called. She stopped the Eliquis last week. A few days later, on Monday, she started having head pain. Behind the ear on the left side and back side of neck on the right. She said that since the CTA came back OK that she could stop taking Eliquis. She states that she sent a message requesting to stop it but I do not see a message. She started taking the Eliquis again on Mon and today. Please call her if you can. ER PROGRAM DIRECTOR documented in this encounter Plan of Treatment Not on file documented as of this encounter Visit Diagnoses Not on filedocumented in this encounter Care Teams Disaster Recovery Coordinator Relationship Specialty Start Date End Date Linda Light MD [address] [address] PCP - General Family Medicine 03/02/21 documented as of this encounter
--- OUTSIDE RECORDS SUMMARY | 2024-12-29 13:04 | XMS_ITS | Referral Summary ---
Author Organization [facility] Address [address] [place] [address] Care Team Providers Care Assessment Rn Name Role Phone Linda Light MD Primary Care Provider [phone] Encounters Date Type Department Care Team Description 12/12/2024 Telephone [facility] Neurology [address] [place] [address] [place] [phone] Althea Rodriguez NP 12/12/2024 Orders Only [address] [phone] Althea Rodriguez NP Vertebral artery dissection 12/12/[address] [phone] Althea Rodriguez NP CTA REPORT (CTA REPORT RESULTS ) 12/09/[address] [place] [phone] Althea Rodriguez NP Medication Problem 11/27/2024 2:20 PM FAMILY LIFE EDUCATOR - 11/27/2024 11:59 PM FAMILY LIFE EDUCATOR Hospital Encounter [facility] [address] [place] [id number] Discharge Disposition: Discharge to home or self care 11/13/[address] [phone] Althea Rodriguez NP 11/07/2024 2:00 PM FAMILY LIFE EDUCATOR Office Visit [facility] Neurology [address] [place] [address] [place] [phone] Althea Rodriguez NP 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); Vertebral artery dissection from Last 3 Months Allergies No known active allergies Medications apixaban (ELIQUIS) 5 mg tabletIndication s:atrial fibrillation Take 1 tablet (5 mg total) by mouth every 12 (twelve) hours 60 tablet 2 4 Active cyclobenzaprine (FLEXERIL) 5 mg tablet Take 1 tablet (5 mg total) by mouth 3 (three) times a day as needed for muscle spasms 30 tablet 2 5 025 Active aspirin 81 mg enteric coated tablet Take 1 tablet (81 mg total) by mouth daily 30 tablet 5 5 025 Active aspirin 81 mg chewable tablet Take 1 tablet (81 mg total) by mouth daily After completing Eliquis treatment 4 025 Discontin ued(Alter aureliano therapy) Active Problems Problem Noted Date Diagnosed Date [...] on file Legal Sex Female 12:12 AM FAMILY LIFE EDUCATOR Gender Identity Not on file Sexual Orientation Not on file Last Filed Vital Signs Vital Sign Reading Time Taken Comments Blood Pressure 95/60 11/07/2024 1:51 PM FAMILY LIFE EDUCATOR Pulse 90 11/07/2024 1:51 PM FAMILY LIFE EDUCATOR Temperature 36.6 C (97.9 F) 08/16/2024 2:53 PM CDT Respiratory Rate 21 11/07/2024 1:51 PM FAMILY LIFE EDUCATOR Oxygen Saturation 95% 11/07/2024 1:51 PM FAMILY LIFE EDUCATOR Inhaled Oxygen Concentration - - Weight 70.3 kg (155 lb) 11/07/2024 1:51 PM FAMILY LIFE EDUCATOR Height 177.8 cm (5' 10 ) 11/07/2024 1:51 PM FAMILY LIFE EDUCATOR Body Mass Index 22.24 11/07/2024 1:51 PM FAMILY LIFE EDUCATOR Plan of Treatment Not on file Procedures Procedure Name Priority Date/Time Associated Diagnosis Comments NEURO CT OUTSIDE REFERENCE Routine 11/27/2024 2:20 PM FAMILY LIFE EDUCATOR from Last 3 Months Results * Neuro CT Outside Reference (11/27/2024 2:20 PM FAMILY LIFE EDUCATOR) Impressions [facility] - 11/27/2024 2:20 PM FAMILY LIFE EDUCATOR These images are for Reference purposes only and have not been reviewed by [facility]iology. There will be no report generated by a [facility] Radiologist. Narrative [facility] - 11/27/2024 2:20 PM FAMILY LIFE EDUCATOR EXAMINATION: Images For Reference Purposes Only Fidencio Nielsen MD IMG CT PROCEDURES Final Re sult [facility] from Last 3 Months Insurance [facility] IDPA IDPA Advance Directives For more information, please contact: [phone] * Full Code (Latest Code Status on File) Date Activated Date Inactivated Comments 08/14/2024 8:39 PM 08/16/2024 8:50 PM Care Teams Assessment Rn Relationship Specialty Start Date End Date Linda Light MD [address] [address] PCP - General Family Medicine 03/02/21
--- OUTSIDE RECORDS SUMMARY | 2024-12-29 13:04 | XMS_ITS | Clinical Summary ---
Author Organization [facility] Address [address] [place] [address] Care Team Providers Care Icd 9 Coder Name Role Phone Linda Light MD Primary Care Provider [phone] Allergies No known active allergies Medications apixaban [...] Type Department Care Team Description 12/12/2024 Telephone [facility] Neurology [address] [place] [phone] Althea Rodriguez NP 12/12/2024 Orders Only [facility] Neurology [address] [place] [phone] Althea Rodriguez NP Vertebral artery dissection 12/12/2024 Telephone [facility] Neurology [address] [place] [address] [place] [phone] Althea Rodriguez NP CTA REPORT (CTA REPORT RESULTS ) 12/09/[address] [place] [phone] Althea Rodriguez NP Medication Problem 11/27/2024 2:20 PM IMMUNOLOGIST - 11/27/2024 11:59 PM IMMUNOLOGIST Hospital Encounter [facility] ([facility]) [address] [place], [place] [id number] Discharge Disposition: Discharge to home or self care 11/13/[address] [place] [phone] Althea Rodriguez NP 11/07/2024 2:00 PM IMMUNOLOGIST Office Visit [address] [place] [phone] Althea Rodriguez NP 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); Vertebral artery dissection from Last 3 Months Social History Tobacco [...] on file Legal Sex Female 12:12 AM IMMUNOLOGIST Gender Identity Not on file Sexual Orientation Not on file Obstetrics History Last Filed Vital Signs Vital Sign Reading Time Taken Comments Blood Pressure 95/60 11/07/2024 1:51 PM IMMUNOLOGIST Pulse 90 11/07/2024 1:51 PM IMMUNOLOGIST Temperature 36.6 C (97.9 F) 08/16/2024 2:53 PM CDT Respiratory Rate 21 11/07/2024 1:51 PM IMMUNOLOGIST Oxygen Saturation 95% 11/07/2024 1:51 PM IMMUNOLOGIST Inhaled Oxygen Concentration - - Weight 70.3 kg (155 lb) 11/07/2024 1:51 PM IMMUNOLOGIST Height 177.8 cm (5' 10 ) 11/07/2024 1:51 PM IMMUNOLOGIST Body Mass Index 22.24 11/07/2024 1:51 PM IMMUNOLOGIST Plan of Treatment Health Maintenance Due Date [...] on patient's age to complete this topic Procedures Procedure Name Priority Date/Time Associated Diagnosis Comments NEURO CT OUTSIDE REFERENCE Routine 11/27/2024 2:20 PM IMMUNOLOGIST from Last 3 Months Results * Neuro CT Outside Reference (11/27/2024 2:20 PM IMMUNOLOGIST) Impressions [facility] - 11/27/2024 2:20 PM IMMUNOLOGIST These images are for Reference purposes only and have not been reviewed by [facility] Radiology. There will be no report generated by a [facility] Radiologist. Narrative [facility] - 11/27/2024 2:20 PM IMMUNOLOGIST EXAMINATION: Images For Reference Purposes Only us Fidencio Nielsen MD IMG CT PROCEDURES Final Re sult [facility] from Last 3 Months Insurance [facility] IDPA Member Subscriber Plan / Payer (Ef fective 2024-Present) Name:Tuyet Brownlee Relation to Subscriber:Self Name:Brownlee Tuyet Maldonado Payer ID:[id number] Group ID:Not on file Type:[place]ICAID [place] Address: [place] [id number] [employer] Member Subscriber Plan / Payer (Ef fective 2024-) Name:Kem Tuyet Maldonado Relation to Subscriber:Self Name:Brownlee Tuyet Maldonado Payer ID:[id number] Group ID:Not on file Type:[place] Address: [place] [id number] IDPA Advance Directives For more information, please contact: [phone] * Full Code (Latest Code Status on File) Date Activated Date Inactivated Comments 08/14/2024 8:39 PM 08/16/2024 8:50 PM Care Teams Icd 9 Coder Relationship Specialty Start Date End Date Linda Light MD [address] [address] PCP - General Family Medicine 03/02/21
== END 2024-12-29 13:00 | disposition home or self-care (01) ==
PROVIDERS: PCP Physician Assistant; Visit Provider Nurse Practitioner
DX: M54.2 Cervicalgia (principal)
CPT/HCPCS: 72141